=== PATIENT | male | born 1975 | race Hispanic/Latino ===

== ENCOUNTER 2019-09-22 18:20 | Emergency (ER) | payer MEDICARE, MEDICAID ==
[2019-09-22 18:55] LABS: Bilirubin Negative (Negative); Blood, Urine Negative (Negative); Clarity Clear (Clear); Glucose, Urine (Dipstick) Normal (Negative); Leukocyte Negative Leu/uL (Negative); Nitrite Negative (Negative); Protein, Urine (Dipstick) 10 mg/dL (Neg-Trace); Urobilinogen Normal mg/dL (Less than 2)
[2019-09-22 18:56] LABS: #Basophils 0.1 thou/uL (0.0-0.2); #Eosinphils 0.1 thou/uL (0.0-0.7); #Lymphocytes 2.6 thou/uL (1.20-3.40); #Neutrophils 7.4 thou/uL (1.40-6.50); %Basophils 0.7 % (0.0-1.0); %Eosinophils 0.8 % (0.0-10.0); %Lymphocytes 23.5 % (21.0-51.0); %Monocytes 8.6 % (0.0-10.0); %Neutrophils 66.4 % (42.0-75.0); Hemoglobin 14.6 g/dL (14.0-18.0); Mean Corpuscular HGB CONC 32.3 g/dL (32.0-36.0); Mean Corpuscular Hemoglobin 29.1 pg (27.0-31.0); Mean Corpuscular Volume 90.2 fL (78.0-98.0); Mean Platelet Volume 7.9 fL (7.4-10.4); Platelet Count 292 thou/uL (130-400); RBC Distribution Width 13.6 % (11.5-14.5); Red Blood Cell (RBC) Count 5.02 mill/uL (4.70-6.10); White Blood Cell (WBC) Count 11.2 thou/uL (4.8-10.8)
[2019-09-22 19:15] LABS: ALT (SGPT) 45 U/L (8-55); AST (SGOT) 37 U/L (5-34); Albumin 4.3 g/dL (3.5-5.0); Alkaline Phosphatase 137 U/L (40-110); Anion Gap 13 mmol/L (10-20); BUN (Urea Nitrogen) 11 mg/dL (8.9-20.6); Bilirubin, Total 0.3 mg/dL (0.2-1.2); Calc. Creatinine Clearance 0 mL/min (70-130); Calcium 8.8 mg/dL (7.8-10.44); Carbon Dioxide 21 mmol/L (22-29); Chloride 108 mmol/L (98-107); Estimated GFR-MDRD 63; Globulin 3.5 g/dL (2.4-3.5); Glucose 108 mg/dL (70-105); Protein, Total 7.8 g/dL (6.0-8.3); Sodium 138 mmol/L (136-145)
--- NOTE | 2019-09-22 20:48 | RAD ---
CHEST TWO VIEW: 09/22/19 HISTORY: Hemoptysis. COMPARISON: Radiograph 2018. FINDINGS: The lungs are clear. No pneumothorax or effusion. Cardiac silhouette and mediastinal contours are wit hin normal limits. There is no acute osseous abnormality. IMPRESSION: No acute intrathoracic abnormality. POS: HOME
== END 2019-09-22 21:59 | disposition home or self-care (01) ==
LOC: ERS 18:20
DX: R20.2 Paresthesia of skin (principal); G89.29 Other chronic pain; M54.9 Dorsalgia, unspecified; R05 Cough; Z86.73 Personal history of transient ischemic attack (TIA), and cerebral infarction without residual deficits; I10 Essential (primary) hypertension; I25.2 Old myocardial infarction; F32.9 Major depressive disorder, single episode, unspecified
CPT/HCPCS: 36415; 71046; 80053; 81003; 85025

== ENCOUNTER 2019-09-24 03:52 | Emergency (ER) | payer MEDICARE, MEDICAID ==
[2019-09-24 05:12] LABS: #Basophils 0.1 thou/uL (0.0-0.2); #Eosinphils 0.1 thou/uL (0.0-0.7); #Lymphocytes 2.5 thou/uL (1.20-3.40); #Monocytes 0.9 thou/uL (0.11-0.59); #Neutrophils 5.8 thou/uL (1.40-6.50); %Basophils 1.2 % (0.0-1.0); %Eosinophils 1.2 % (0.0-10.0); %Lymphocytes 26.9 % (21.0-51.0); %Monocytes 9.5 % (0.0-10.0); %Neutrophils 61.3 % (42.0-75.0); Hemoglobin 13.8 g/dL (14.0-18.0); Mean Corpuscular HGB CONC 32.8 g/dL (32.0-36.0); Mean Corpuscular Hemoglobin 29.7 pg (27.0-31.0); Mean Corpuscular Volume 90.3 fL (78.0-98.0); Mean Platelet Volume 7.7 fL (7.4-10.4); Platelet Count 260 thou/uL (130-400); RBC Distribution Width 13.6 % (11.5-14.5); Red Blood Cell (RBC) Count 4.67 mill/uL (4.70-6.10); White Blood Cell (WBC) Count 9.4 thou/uL (4.8-10.8)
[2019-09-24 05:32] LABS: ALT (SGPT) 35 U/L (8-55); AST (SGOT) 31 U/L (5-34); Albumin 3.9 g/dL (3.5-5.0); Alkaline Phosphatase 126 U/L (40-110); Anion Gap 11 mmol/L (10-20); BUN (Urea Nitrogen) 11 mg/dL (8.9-20.6); Bilirubin, Total 0.3 mg/dL (0.2-1.2); Calc. Creatinine Clearance 0 mL/min (70-130); Calcium 8.5 mg/dL (7.8-10.44); Carbon Dioxide 21 mmol/L (22-29); Chloride 109 mmol/L (98-107); Estimated GFR-MDRD 76; Globulin 3.1 g/dL (2.4-3.5); Glucose 118 mg/dL (70-105); Potassium 3.6 mmol/L (3.5-5.1); Sodium 137 mmol/L (136-145)
[2019-09-24] MEDS ORDERED: Lorazepam 1 MG TAB ONE (06:10)
--- NOTE | 2019-09-24 10:38 | RAD ---
CHEST 1 VIEW: HISTORY: Chest pain. COMPARISON: 09/22/2019. FINDINGS: Slightly less inspiration. No confluent pneumonia or overt edema. IMPRESSION: No significant acute process. Less inspiration, but otherwise stable from 09/22/2019. POS: [facility]
== END 2019-09-24 06:20 | disposition home or self-care (01) ==
LOC: ERS 03:52
DX: R07.9 Chest pain, unspecified (principal); I10 Essential (primary) hypertension; I25.2 Old myocardial infarction; F32.9 Major depressive disorder, single episode, unspecified; Z86.73 Personal history of transient ischemic attack (TIA), and cerebral infarction without residual deficits; Z79.899 Other long term (current) drug therapy
CPT/HCPCS: 36415; 71045; 80053; 84484; 85025; 93005

== ENCOUNTER 2020-02-14 00:40 | Observation (INO) | payer MEDICARE, MEDICAID, OTHER ==
[2020-02-14 01:13] LABS: #Basophils 0.1 thou/uL (0.0-0.2); #Eosinphils 0.1 thou/uL (0.0-0.7); #Lymphocytes 2.5 thou/uL (1.20-3.40); #Monocytes 0.7 thou/uL (0.11-0.59); #Neutrophils 4.5 thou/uL (1.40-6.50); %Basophils 1.1 % (0.0-1.0); %Eosinophils 1.5 % (0.0-10.0); %Lymphocytes 31.8 % (21.0-51.0); %Monocytes 8.3 % (0.0-10.0); %Neutrophils 57.2 % (42.0-75.0); Hemoglobin 12.8 g/dL (14.0-18.0); Mean Corpuscular HGB CONC 33.6 g/dL (32.0-36.0); Mean Corpuscular Hemoglobin 29.5 pg (27.0-31.0); Mean Platelet Volume 8.2 fL (7.4-10.4); Platelet Count 223 thou/uL (130-400); RBC Distribution Width 12.6 % (11.5-14.5); Red Blood Cell (RBC) Count 4.33 mill/uL (4.70-6.10); White Blood Cell (WBC) Count 7.8 thou/uL (4.8-10.8)
[2020-02-14 01:38] LABS: ALT (SGPT) 45 U/L (8-55); AST (SGOT) 39 U/L (5-34); Albumin 3.5 g/dL (3.5-5.0); Alkaline Phosphatase 120 U/L (40-110); Anion Gap 14 mmol/L (10-20); BUN (Urea Nitrogen) 10 mg/dL (8.9-20.6); Bilirubin, Total 0.3 mg/dL (0.2-1.2); CK (CPK) 286 U/L (30-200); Calc. Creatinine Clearance 0 mL/min (70-130); Calcium 8.5 mg/dL (7.8-10.44); Carbon Dioxide 22 mmol/L (22-29); Chloride 100 mmol/L (98-107); Estimated GFR-MDRD 52; Globulin 3.3 g/dL (2.4-3.5); Glucose 464 mg/dL (70-105); Lipase 42 U/L (8-78); Potassium 5.3 mmol/L (3.5-5.1); Protein, Total 6.8 g/dL (6.0-8.3); Sodium 131 mmol/L (136-145)
[2020-02-14 04:20] LABS: Amphetamine Not Detected (NotDetected); Barbiturates Screen Not Detected (NotDetected); Benzodiazepine Screen Not Detected (NotDetected); Cocaine Metabolite Screen Not Detected (NotDetected); Medtox Reader # READER 4; Methadone Not Detected (NotDetected); Methamphetamine Not Detected (NotDetected); Opiate Screen Not Detected (NotDetected); Oxycodone Screen Not Detected (NotDetected); Phencyclidine (PCP) Not Detected (NotDetected); THC/Cannabinoid Screen Not Detected (NotDetected); Tricyclic Screen Not Detected (NotDetected)
[2020-02-14 04:21] LABS: Medtox Control Line Valid? VALID (VALID)
[2020-02-14] MEDS ORDERED: Aspirin 325 MG TAB ONE (04:54)
[2020-02-14] MEDS ORDERED: Ondansetron PF 4 MG/2 ML Vial IVP PRN (07:23)
[2020-02-14] MEDS ORDERED: Ondansetron ODT 4 MG TAB PO PRN (07:23)
[2020-02-14] MEDS ORDERED: Lactated Ringer's 1,000 ML IV SCH (07:30)
[2020-02-14] MEDS ORDERED: Fentanyl 100 MCG/2 ML VIAL SLOW IVP PRN (07:32)
[2020-02-14 07:34] VITALS: BMI 49.4
--- NOTE | 2020-02-14 07:39 | RAD ---
Portable frontal chest radiograph: 02/14/2020 COMPARISON: 12/16/2019 HISTORY: Right-sided chest pain FINDINGS: Lungs are clear. Heart and mediastinal contours appear within normal limits. IMPRESSION: No acute findings.
--- NOTE | 2020-02-14 07:53 | CT ---
PRELIMINARY REPORT/[facility]/EMERGENCY AFTER HOURS PROCEDURE: EXAM: CTA Chest with Intravenous Contrast CLINICAL HISTORY: CP TECHNIQUE: Axial CTA images of the chest with intravenous contrast. Three-dimensional MIP/volume rend ered reformations were performed. CONTRAST: With; ISOVUE 370,100mL COMPARISON: None provided. FINDINGS: PULMONARY ARTERIES There is no intraluminal filling defect suspicious for PE. AORTA No thoracic aortic aneurysm or dissection. LUNGS There is diffuse peribronchial thickening. This is mildly worse in the right lung compared to the left. The lungs are clear. No pulmonary mass. No focal airspace consolidation. PLEURAL SPACES No pleural effusion. No pneumothorax. HEART AND MEDIASTINUM No cardiomegaly. No significant pericardial effusion. LYMPH NODES No lymphadenopathy. BONES No focal osseous abnormality or acute fracture. CHEST WALL AND UPPER ABDOMEN Liver is enlarged. There is hepatic steatosis. The chest wall is unre markable. IMPRESSION: No evidence for acute pulmonary embolism Findings consistent with bronchitis of indete rminate age. ELECTRONICALLY SIGNED BY: Kayley Yadav MD Feb 14, 2020 3:01:39 AM CDT FINAL REPORT CT ANGIOGRAM OF THE CHEST: HISTORY: Chest pain. COMPARISON: 12/16/2019. TECHNIQUE: CT angiogram of the chest is performed in the axial plane. Three-dimensional reformatted i mages are submitted for interpretation. FINDINGS: Mediastinum: No mass, lymphadenopathy or hematoma. Heart: Normal size. No significant pericardial fluid. Aorta: No aneurysm or dissection Upper solid abdominal viscera: No abnormality enhancement. Trachea and central bronchi: Patent. Minimal stable peribronchial thickening, nonspecific. Pleural spaces: No effusion. Lung parenchyma: No masses or consolidation. Pneumothorax: None. Osseous structures: No lytic or blastic lesions. Pulmonary arteries: Adequate contrast opacification pulmonary arterial system to the level of segment al arteries. No filling defect to suggest pulmonary embolism. IMPRESSION: 1. This report is in agreement with initial report by [facility]. 2. No evidence of pulmonary artery embolism to the level of the segmental arteries. 3. Nonspecific mild peribronchial thickening. Transcribed Date/Time: 02/14/2020 8:35 AM
[2020-02-14 08:27] LABS: Troponin I Less than 0.010 ng/mL (< 0.028)
[2020-02-14] MEDS ORDERED: FLU VACC QS2020-21(6MOS UP)/PF 60 MCG/0.5 ML SYRINGE IM ONE (08:30)
[2020-02-14] MEDS: Sodium Chloride 0.9% 1,000 ML IV SCH ×2 (08:58→18:44)
[2020-02-14] MEDS ORDERED: Aspirin 325 MG TAB PO SCH (09:00)
--- NOTE | 2020-02-14 09:24 | PDOC.HHP ---
Hospitalist HPI - History of Present Illness Chest pain History of Present Illness: Mr. Torre is a 44-year-old male with a past medical history of GA secondary to cocaine use, CHF, hypertension, seizures, hyperlipidemia, hypertension who presented to the emergency room for chest pain. Patient reports his chest pain has been ongoing over the past 2 weeks and lasts about 1 to 2 minutes of squeezing tightness in his chest. Patient notes that chest pain is associated with left arm numbness and mild shortness of breath. He denies nausea, vomiting, diarrhea. Patient denies dizziness or changes in vision during these events. Patient reports that these will occur approximately 1-2 times per day. Patient has a history of atypical chest pain with multiple admissions for chest pain rule out in the past. Of note he has had a heart catheterization done in 2019 which showed normal coronary arteries. In the ED vital signs 139/81, 65, 14, 98% on room air. EKG showed normal sinus rhythm with old right bundle branch block. Initial troponin 0 0.01. H/H 12.8/38.1. WBC 7.8, BUN/CR 10/1.47 sodium 131 potassium 5.3. BNP less than 10, lipase 42. D-dimer 0.52. Patient had CTA which was negative for any pulmonary embolism but did show mild peribronchial thickening stable from prior studies. In the emergency room patient received 3 and 25 mg of aspirin and 1 L of normal saline. Hospitalist ROS - Review of Systems Constitutional: denies: fever, chills, sweats, weakness, malaise, other Eyes: denies: pain, vision change, conjunctivae inflammation, eyelid inflammation, redness, other ENT: denies: ear pain, ear discharge, nose pain, nose discharge, nose congestion, mouth pain, mouth swelling, throat pain, throat swelling, other Respiratory: reports: shortness of breath. denies: cough, dry, hemoptysis, SOB with excertion, pleuritic pain, sputum, wheezing, other Cardiovascular: reports: chest pain. denies: palpitations, orthopnea, paroxysmal noc. dyspnea, edema, light headedness, other Gastrointestinal: denies: nausea, vomiting, abdominal pain, diarrhea, constipation, melena, hematochezia, other Genitourinary: denies: dysuria, frequency, incontinence, hematuria, retention, other Musculoskeletal: denies: neck pain, shoulder pain, arm pain, back pain, hand pain, leg pain, foot pain, other Skin: denies: rash, lesions, mingo, bruising, other Neurological: reports: seizures. denies: weakness, numbness, incoordination, change in speech, confusion, other - Medication Medications: Home medications include Keppra 500 mg twice daily Fluoxetine 20 mg daily Zofran Tizanidine 4 mg 3 times daily as needed Reglan 5 mg Hydroxyzine 50 mg twice daily Atorvastatin 80 mg daily Omeprazole 40 mg daily Gabapentin 300 mg twice daily Flonase Albuterol inhaler Topiramate 100 mg twice daily Hydralazine 25 mg twice daily Patient is allergic to phenytoin. Hospitalist History - Past Medical History Other Medical History: Medical history includes GA secondary to cocaine use Congestive heart failure Hypertension Seizures Obstructive sleep apnea COPD/obesity hypoventilation syndrome - Past Surgical History Other Surgical History: Past surgical history includes Sinus surgery Right ear surgery Tonsillectomy Cardiac cath in 2019 which showed normal coronary arteries - Family History Other Family History: Patient reports family history of heart disease. Also significant history of cancer with his mother dying of lung cancer in her 50s, and grandfather with lung cancer on that side and paternal grandfather with colon cancer. - Social History Smoking Status: Former smoker Tobacco Type: cigarettes Alcohol: reports: None Drugs: reports: cocaine, marijuana Living Situation: With Family Activity level: independent ambulation Other Social History: Patient with memory deficits secondary to cocaine induced GA GA and in cardiac arrest. Has account manager relief named Jennifer who is patient's medical decision-maker. - Exam General Appearance: NAD, awake alert Eye: PERRL, anicteric sclera ENT: normocephalic atraumatic, no oropharyngeal lesions, moist mucosa Neck: supple, symmetric, no JVD, no thyromegaly, no lymphadenopathy, no carotid bruit Heart: RRR, no murmur, no gallops, no rubs, normal peripheral pulses Respiratory: CTAB, no wheezes, no rales, no ronchi, normal chest expansion, no tachypnea, normal percussion Gastrointestinal: soft, non-tender, non-distended, normal bowel sounds, no palpable masses, no hepatomegaly, no splenomegaly, no bruit Extremities: no cyanosis, no clubbing, no edema Skin: normal turgor, no lesions, no rashes Neurological: cranial nerve grossly intact, normal sensation to touch, no weakness, no focal deficits, no new deficit Musculoskeletal: normal tone, normal strength, no muscle wasting Psychiatric: normal affect, normal behavior, A&O x 3 Hospitalist Results - Labs Result Diagrams: 02/14/20 01:05 02/15/20 07:42 Lab results: WBC 7.8 thou/uL (4.8-10.8) 02/14/20 01:05 Hgb 12.8 g/dL (14.0-18.0) L 02/14/20 01:05 Hct 38.1 % (42.0-52.0) L 02/14/20 01:05 MCV 88.0 fL (78.0-98.0) 02/14/20 01:05 Plt Count 223 thou/uL (130-400) 02/14/20 01:05 Neutrophils % 57.2 % (42.0-75.0) 02/14/20 01:05 Sodium 131 mmol/L (136-145) L 02/14/20 01:05 Potassium 5.3 mmol/L (3.5-5.1) H 02/14/20 01:05 Chloride 100 mmol/L (98-107) 02/14/20 01:05 Carbon Dioxide 22 mmol/L (22-29) 02/14/20 01:05 BUN 10 mg/dL (8.9-20.6) 02/14/20 01:05 Creatinine 1.47 mg/dL (0.7-1.3) H 02/14/20 01:05 Glucose 464 mg/dL (70-105) H 02/14/20 01:05 Calcium 8.5 mg/dL (7.8-10.44) 02/14/20 01:05 Total Bilirubin 0.3 mg/dL (0.2-1.2) 02/14/20 01:05 AST 39 U/L (5-34) H 02/14/20 01:05 ALT 45 U/L (8-55) 02/14/20 01:05 Alkaline Phosphatase 120 U/L (40-110) H 02/14/20 01:05 Creatine Kinase 286 U/L (30-200) H 02/14/20 01:05 Troponin I Less than 0.010 ng/mL (< 0.028) 02/14/20 07:49 B-Natriuretic Peptide Less than 10.0 pg/mL (0-100) 02/14/20 01:05 Serum Total Protein 6.8 g/dL (6.0-8.3) 02/14/20 01:05 Albumin 3.5 g/dL (3.5-5.0) 02/14/20 01:05 Lipase 42 U/L (8-78) 02/14/20 01:05 Hospitalist H&P A/P - Plan Plan: Chest pain 43-year-old male with past medical history of cocaine induced GA with cardiac arrest, CHF, hypertension, seizures who presents for chest pain. EKG showed no rmal sinus rhythm with old right bundle branch block. Initial troponin 0 0.01. D-dimer 0.52 CTA negative for pulmonary embolism or aortic pathology. Patient has had multiple prior admissions for chest pain/ACS rule out. Patient had an abnormal stress test last year in 2019 and underwent cardiac catheterization which showed normal coronary arteries. Patient received 3 and 25 mg of aspirin in the ED. Will keep for observation and monitor troponins as well as keep on telemetry overnight. Plan: Trend troponins Glass Handler electrolytes, magnesium, calcium, TSH Aspirin, continue home atorvastatin Acute kidney injury On admission BUN/CR 01/30.47. On chart review prior creatinine level less than 1. Patient did receive contrast dye with CTA. Patient was hydrated after receiving dye and we will continue IV fluids. Trend kidney function IV fluids Avoid nephrotoxic agents were possible Seizures Patient with history of seizure disorder on topiramate and Keppra. Patient follows with neurologist Dr. Craft. Patient reports compliance with his seizure medications, but reports his last seizure was approximately 2 weeks ago. Plan: Continue Keppra, topiramate Continue tizanidine Continue to monitor Hyperkalemia Patient mildly hyperkalemic to 5.3 on admission. EKG with no ST changes. Patie nt receiving IV fluids secondary to MURALI. We will continue to monitor and treat as necessary Hypertension Continue home antihypertensives, hydralazine Hyperlipidemia Continue home atorvastatin 80 mg Anxiety/depression Continue home fluoxetine, hydroxyzine. GERD Continue home omeprazole DVT prophylaxis: Lovenox Full code Case discussed with attending physician, Dr. Perez.
[2020-02-14] MEDS ORDERED: Non-Formulary Item 1 EACH (Tizanidine Hcl [Tizanidine Hcl] 4 MG Capsule) PO PRN (09:45)
[2020-02-14] MEDS ORDERED: tiZANidine HCl 4 MG TAB PO PRN (10:39)
[2020-02-14 11:21] LABS: Calcium 8.6 mg/dL (7.8-10.44); Magnesium 1.7 mg/dL (1.6-2.6)
[2020-02-14] MEDS: Acetaminophen 325 MG TAB PO PRN ×2 (11:54→16:13)
[2020-02-14 12:55] LABS: SARS-CoV-2 MS2 Positive; SARS-CoV-2 N Gene Negative; SARS-CoV-2 S Gene Negative; SARS-CoV-2 by NAA Not Detected (NotDetected); SARS-CoV-2 orf1ab Negative
[2020-02-14] MEDS ORDERED: Iopamidol-370 76% 500 ML 1 ML ONE (14:36)
[2020-02-14] MEDS: hydrALAZINE 25 MG TAB PO SCH ×2 (15:25→22:00)
[2020-02-14] MEDS ORDERED: Acetaminophen 325 MG TAB PO PRN (17:33)
[2020-02-14] MEDS: Gabapentin 300 MG CAP PO SCH (22:00)
[2020-02-14] MEDS: levETIRAcetam 500 MG TAB PO SCH (22:00)
[2020-02-14] MEDS: hydrOXYzine Pamoate 25 mg Capsule PO SCH (22:00)
[2020-02-14] MEDS: Topiramate 100 MG TAB PO SCH (22:01)
[2020-02-15] MEDS: Sodium Chloride 0.9% 1,000 ML IV SCH (04:46)
[2020-02-15 08:48] LABS: Anion Gap 12 mmol/L (10-20); BUN (Urea Nitrogen) 8 mg/dL (8.9-20.6); Calc. Creatinine Clearance 197 mL/min (70-130); Calcium 8.8 mg/dL (7.8-10.44); Carbon Dioxide 26 mmol/L (22-29); Chloride 103 mmol/L (98-107); Estimated GFR-MDRD 81; Glucose 130 mg/dL (70-105); Potassium 4.5 mmol/L (3.5-5.1); Sodium 136 mmol/L (136-145)
[2020-02-15] MEDS ORDERED: Non-Formulary Item 1 EACH (Fluticasone Propionate [Flonase Allergy Relief] 9.9 ML Bottle) EA NARE SCH (09:00)
[2020-02-15] MEDS ORDERED: FLUoxetine HCl 20 MG CAP PO SCH (09:00)
[2020-02-15] MEDS ORDERED: Non-Formulary Item 1 EACH (Atorvastatin Calcium [Lipitor] 80 MG Tablet) PO SCH (09:00)
[2020-02-15] MEDS ORDERED: Non-Formulary Item 1 EACH (Omeprazole [Omeprazole] 40 MG Capsule.Dr) PO SCH (09:00)
[2020-02-15] MEDS ORDERED: Fluticasone Propionate Nasal Spray 16 gm Bottle NASAL SCH (09:00)
[2020-02-15] MEDS ORDERED: Aspirin 325 mg Enteric Coated Tablet PO SCH (09:00)
[2020-02-15] MEDS ORDERED: Atorvastatin Calcium 40 MG TAB PO SCH (09:00)
[2020-02-15] MEDS: Gabapentin 300 MG CAP PO SCH (09:43)
[2020-02-15] MEDS: hydrALAZINE 25 MG TAB PO SCH (09:44)
[2020-02-15] MEDS: levETIRAcetam 500 MG TAB PO SCH (09:44)
[2020-02-15] MEDS: Topiramate 100 MG TAB PO SCH (09:45)
[2020-02-15] MEDS: hydrOXYzine Pamoate 25 mg Capsule PO SCH (09:48)
[2020-02-15 11:55] VITALS: BP 139/87; TEMP 97.9
[2020-02-15 13:08] LABS: Hemoglobin A1c 7.8 % (4.0-6.0)
--- NOTE | 2020-02-16 11:15 | EKG ---
Test Reason : Blood Pressure : / mmHG Vent. Rate : 063 BPM Atrial Rate : 063 BPM P-R Int : 138 ms QRS Dur : 096 ms QT Int : 426 ms P-R-T Axes : 014 014 020 degrees QTc Int : 435 ms Normal sinus rhythm Incomplete right bundle branch block Borderline ECG Confirmed by KIANNA PIMENTEL ([id number]), design editor ANIKET MOORE ([id number]) on 02/16/2020 11:15:05 AM Referred By: Confirmed By:KIANNA PIMENTEL
--- NOTE | 2020-02-19 15:47 | DIS ---
DATE OF ADMISSION: 02/14/2020 DATE OF DISCHARGE: 02/15/2020 DISCHARGE DIAGNOSES: 1. Atypical chest pain. 2. Acute kidney injury, resolved. 3. History of seizure. 4. Hyperkalemia, resolved. 5. Uncontrolled hypertension. 6. Anxiety depression disorder/depression disorder. 7. Gastroesophageal reflux disease. PROCEDURES: None. CONSULTATIONS: None. LABORATORY DATA AND IMAGING STUDY: WBC 7.8, hemoglobin 12.8, hematocrit 38.1, platelet 232. D-dimer 0.52. Sodium is 136, potassium 4.5, chloride is 103, anion gap 12, BUN 8, creatinine is 1.01, glucose 130. AST 39, ALT 45, TSH 2.88. Urine drug screen was not detected. COVID PCR was negative. Troponins negative x3. CTA, no evidence of PE, finding consistent of bronchitis of indeterminate age. Chest x-ray, no acute finding. HISTORY OF PRESENT ILLNESS AND BRIEF HOSPITAL COURSE: The patient is a pleasant 44-year-old gentleman, who has significant past medical history of congestive heart failure, hypertension, seizure disorder, dyslipidemia, morbid obesity with BMI of 49.4, who presented to the ED with complaint of chest discomfort. His symptoms started intermittently for the past couple of weeks. The patient apparently had a heart catheterization done in 2018, which showed normal coronary artery disease as well as stress test. Given his risk factor and treatment symptomatology, he was subsequently admitted to hospitalist service for further management. He was monitored on tele. No evidence of arrhythmia. His serial cardiac enzymes negative x3. Apparently, he ran out of his hydralazine for the past few days, and his blood pressure has been elevated. He also suspected to have a severe obstructive sleep apnea, he was on CPAP in the past, but has not been using it for last few years, his PCP has referred him for a sleep study, which supposed to be done in May of 2020, which I suspect probably the underlying cause of the majority of his problem. The patient was counseled extensively with regard to weight reduction, healthy diet and regular exercise. At this time, his blood pressures appear to be well controlled. His symptoms resolved. We recommend to follow up with PCP, and encouraged to keep the sleep study appointment. At this time, the patient is stable to discharge home. His symptoms resolved. Kidney functions normalized, tolerating diet. DISPOSITION: The patient is stable to discharge home. ACTIVITY: As tolerated. DIET: Heart healthy diet. FOLLOWUP CARE: The patient to follow up with his PCP in 1 to 2 weeks, recommended outpatient sleep study. PHYSICAL EXAMINATION: VITAL SIGNS: Temperature is 97.6, respiratory rate 14, pulse 71, saturating 96% on room air, blood pressure 142/76. GENERAL APPEARANCE: The patient is not in acute distress, obese. HEENT: Normocephalic, atraumatic. Mucous membranes moist. NECK: Supple. No lymphadenopathy. No JVD. CARDIOVASCULAR: Regular rate and rhythm. S1 and S2 noted. No murmur. PULMONOLOGY: Clear to auscultation bilaterally. ABDOMEN: Soft, obese. EXTREMITIES: No edema. NEUROLOGIC: Cranial nerves 2 through 12 grossly intact. No focal weakness. PSYCHIATRIC: The patient is alert and oriented x3 with normal affect. DISCHARGE MEDICATIONS: He will continue his home routine medication include, 1. Zofran 4 mg q.6 p.r.n. 2. Albuterol neb 2.5 neb q.6 p.r.n. for wheezing. 3. Hydralazine 25 mg t.i.d. 4. Flonase 9.9 mL bottle 1 spray daily. 5. Fluoxetine (Prozac) 20 mg p.o. q.a.m. 6. Gabapentin 300 mg b.i.d. 7. Hydroxyzine 50 mg b.i.d. 8. Keppra 500 mg b.i.d. 9. Lipitor 80 mg p.o. daily. 10. Omeprazole 40 mg p.o. daily. 11. Reglan 5 mg q.i.d. p.r.n. for nausea. 12. Tizanidine 4 mg p.o. t.i.d. p.r.n. for spasm. Thank you for allowing us to participate in this patient's care. Discharge time spent, 30 minutes. Job ID: [id number]
== END 2020-02-15 13:52 | disposition home or self-care (01) ==
LOC: ERS 00:40 → 2SE 04:11
PROVIDERS: ADMIT Internal Medicine; ATTEND Internal Medicine
DX: R07.9 Chest pain, unspecified (principal); I11.0 Hypertensive heart disease with heart failure; I50.9 Heart failure, unspecified; N17.9 Acute kidney failure, unspecified; G40.909 Epilepsy, unspecified, not intractable, without status epilepticus; E78.5 Hyperlipidemia, unspecified; G47.33 Obstructive sleep apnea (adult) (pediatric); J44.9 Chronic obstructive pulmonary disease, unspecified; I25.2 Old myocardial infarction; E87.5 Hyperkalemia; F41.9 Anxiety disorder, unspecified; F32.9 Major depressive disorder, single episode, unspecified; K21.9 Gastro-esophageal reflux disease without esophagitis; Z79.84 Long term (current) use of oral hypoglycemic drugs; Z79.899 Other long term (current) drug therapy; Z87.891 Personal history of nicotine dependence; Z88.8 Allergy status to other drugs, medicaments and biological substances; Z91.038 Other insect allergy status; Z20.828 Contact with and (suspected) exposure to other viral communicable diseases
CPT/HCPCS: 71045; 71275; 80048; 80306; 82310; 82550; 82962; 83036; 83690; 83735; 83880; 84484 ×2; 85379; 87040; 87086; 90662; 93005; 94760; 99285; G0008; U0003; 36415; 36416; 80053; 84443; 85025; 87635; 90471; 96360; 96361; G0378; Q0177; Q9967

== ENCOUNTER 2020-03-14 14:57 | Emergency (ER) | payer MEDICARE, MEDICAID ==
[2020-03-14] MEDS ORDERED: Acetaminophen 500 MG TAB ONE (16:35)
[2020-03-14] MEDS ORDERED: Ketorolac Tromethamine 30 MG/ML VIAL ONE (17:42)
[2020-03-14] MEDS ORDERED: Metoclopramide HCl 10 MG/2 ML VIAL ONE (17:42)
[2020-03-14] MEDS ORDERED: diphenhydrAMINE 50 MG/ML VIAL ONE (17:42)
--- NOTE | 2020-03-14 17:47 | RAD ---
CHEST ONE VIEW: 03/14/20 HISTORY: Cough. Hemoptysis. COMPARISON: 02/14/20. FINDINGS: Normal cardiac silhouette. Pulmonary vessels and hilum are normal. Costophrenic angles are clear. No consolidation or mass. No pneumothorax or acute osseous abnormalities. IMPRESSION: No acute cardiopulmonary process. POS: [facility]
[2020-03-14 17:52] LABS: #Eosinphils 0.1 thou/uL (0.0-0.7); #Lymphocytes 2.2 thou/uL (1.20-3.40); #Monocytes 0.6 thou/uL (0.11-0.59); #Neutrophils 4.8 thou/uL (1.40-6.50); %Basophils 0.4 % (0.0-1.0); %Eosinophils 1.6 % (0.0-10.0); %Lymphocytes 28.1 % (21.0-51.0); %Monocytes 7.4 % (0.0-10.0); %Neutrophils 62.5 % (42.0-75.0); Hemoglobin 12.8 g/dL (14.0-18.0); Mean Corpuscular HGB CONC 33.6 g/dL (32.0-36.0); Mean Corpuscular Hemoglobin 28.8 pg (27.0-31.0); Mean Corpuscular Volume 85.8 fL (78.0-98.0); Mean Platelet Volume 8.3 fL (7.4-10.4); Platelet Count 224 thou/uL (130-400); RBC Distribution Width 12.7 % (11.5-14.5); Red Blood Cell (RBC) Count 4.45 mill/uL (4.70-6.10); White Blood Cell (WBC) Count 7.7 thou/uL (4.8-10.8)
[2020-03-14 18:15] LABS: ALT (SGPT) 44 U/L (8-55); AST (SGOT) 48 U/L (5-34); Albumin 3.7 g/dL (3.5-5.0); Alkaline Phosphatase 125 U/L (40-110); Anion Gap 15 mmol/L (10-20); BUN (Urea Nitrogen) 11 mg/dL (8.9-20.6); Bilirubin, Total 0.2 mg/dL (0.2-1.2); Calc. Creatinine Clearance 0 mL/min (70-130); Calcium 8.6 mg/dL (7.8-10.44); Carbon Dioxide 23 mmol/L (22-29); Chloride 102 mmol/L (98-107); Estimated GFR-MDRD 64; Globulin 3.6 g/dL (2.4-3.5); Glucose 244 mg/dL (70-105); Potassium 4.7 mmol/L (3.5-5.1); Protein, Total 7.3 g/dL (6.0-8.3); Sodium 135 mmol/L (136-145)
[2020-03-15 20:45] LABS: SARS-CoV-2 MS2 Positive; SARS-CoV-2 N Gene Negative; SARS-CoV-2 S Gene Negative; SARS-CoV-2 by NAA Not Detected (NotDetected); SARS-CoV-2 orf1ab Negative
== END 2020-03-14 18:34 | disposition home or self-care (01) ==
LOC: ERS 14:57
DX: E11.65 Type 2 diabetes mellitus with hyperglycemia (principal); J39.9 Disease of upper respiratory tract, unspecified; R51.9 Headache, unspecified; Z20.828 Contact with and (suspected) exposure to other viral communicable diseases; I11.0 Hypertensive heart disease with heart failure; I50.9 Heart failure, unspecified; I25.2 Old myocardial infarction; F32.9 Major depressive disorder, single episode, unspecified; N19 Unspecified kidney failure; Z79.84 Long term (current) use of oral hypoglycemic drugs; Z79.899 Other long term (current) drug therapy
CPT/HCPCS: 71045; 80053; 85025; U0003; 36415; 36416; 87635; 96365; 96375; J1200; J1885; J2765

== ENCOUNTER 2020-06-06 19:00 | Outpatient (CLI) | payer MEDICARE, MEDICAID | END 2020-06-06 19:01 | disposition home or self-care (01) | LOC: SLEEPLAB 19:00 | PROVIDERS: ATTEND Internal Medicine Pulmonary Disease | DX: G47.33 Obstructive sleep apnea (adult) (pediatric) (principal); G47.10 Hypersomnia, unspecified; G31.84 Mild cognitive impairment of uncertain or unknown etiology; G47.00 Insomnia, unspecified; E66.9 Obesity, unspecified; F32.9 Major depressive disorder, single episode, unspecified; R06.83 Snoring; R53.83 Other fatigue; R40.0 Somnolence | CPT/HCPCS: 95811 ==

== ENCOUNTER 2020-06-09 17:56 | Inpatient (IN) | payer MEDICARE, MEDICAID ==
[~2020-06-09 17:56] MED LIST: Iopamidol-370 76% 500 ML 1 ML ONE
[2020-06-09] MEDS ORDERED: Acetaminophen 500 MG TAB ONE (19:58)
[2020-06-09] MEDS ORDERED: Albuterol 200 PUFF (6.7GM INHALER) ONE (20:00)
[2020-06-09 20:06] LABS: #Basophils 0.1 thou/uL (0.0-0.2); #Eosinphils 0.2 thou/uL (0.0-0.7); #Lymphocytes 2.4 thou/uL (1.20-3.40); #Neutrophils 7.2 thou/uL (1.40-6.50); %Basophils 0.6 % (0.0-1.0); %Eosinophils 1.7 % (0.0-10.0); %Lymphocytes 22.1 % (21.0-51.0); %Monocytes 8.8 % (0.0-10.0); %Neutrophils 66.7 % (42.0-75.0); Mean Corpuscular HGB CONC 33.3 g/dL (32.0-36.0); Mean Corpuscular Hemoglobin 27.9 pg (27.0-31.0); Mean Corpuscular Volume 83.8 fL (78.0-98.0); Mean Platelet Volume 7.9 fL (7.4-10.4); Platelet Count 248 thou/uL (130-400); RBC Distribution Width 13.1 % (11.5-14.5); White Blood Cell (WBC) Count 10.8 thou/uL (4.8-10.8)
--- NOTE | 2020-06-09 20:43 | RAD ---
Portable frontal chest radiograph: 06/09/2020 COMPARISON: 03/14/2020 HISTORY: Asthma, dyspnea FINDINGS: There is new increased density in the right hilar region. There is no pneumothorax or pleur al fluid. There is no focal consolidation or alveolar edema. IMPRESSION: New focal opacity in the right hilar region. This could represent a focal area of inflamm atory/infectious pneumonitis. Underlying mass cannot be excluded and thus, short-term follow-up imaging following treatment is advised to document resolution. CODE T
[2020-06-09 21:16] LABS: ALT (SGPT) 34 U/L (8-55); AST (SGOT) 38 U/L (5-34); Albumin 3.9 g/dL (3.5-5.0); Alkaline Phosphatase 173 U/L (40-110); Anion Gap 21 mmol/L (10-20); BUN (Urea Nitrogen) 10 mg/dL (8.9-20.6); Bilirubin, Total 0.5 mg/dL (0.2-1.2); CK (CPK) 208 U/L (30-200); Calc. Creatinine Clearance 0 mL/min (70-130); Calcium 8.7 mg/dL (7.8-10.44); Carbon Dioxide 14 mmol/L (22-29); Chloride 103 mmol/L (98-107); Glucose 305 mg/dL (70-105); Potassium 5.4 mmol/L (3.5-5.1); Protein, Total 7.9 g/dL (6.0-8.3); Sodium 133 mmol/L (136-145)
[2020-06-09] MEDS ORDERED: cefTRIAXone\\ROCEPHIN 2 GM VIAL ONE (21:58)
[2020-06-09] MEDS ORDERED: Azithromycin 250 MG TAB ONE (21:58)
[2020-06-09] MEDS ORDERED: Ketorolac Tromethamine 30 MG/ML VIAL ONE (21:58)
--- NOTE | 2020-06-09 23:18 | CT ---
CT angiogram chest: 06/09/2020 COMPARISON: 02/14/2020 HISTORY: Shortness of breath with chest pain TECHNIQUE: Axial CT imaging at 2.5 mm intervals from the thoracic inlet through the upper abdomen wit h IV contrast using a CT angiogram protocol. Coronal and sagittal 3-D reformatted imaging obtained. FINDINGS: There is no axillary lymphadenopathy noted. There is a new right paratracheal enlarged lymph node measuring 2.2 cm in short axis dimension. New s ubcarinal adenopathy measures 2.6 cm in short axis dimension, multiple new mildly enlarged left hilar lymph nodes are noted, and there is prominent new right hilar lymphadenopathy measuring up to 2 .7 cm in short axis dimension. No pneumothorax is evident on either side. There is a subtle focal area of hazy groundglass opacity within the left lower lobe on axial image 76 . There is a new left upper lobe pulmonary nodule on axial image 55 measuring 9 mm. There is a nonspecific tiny pleural-based nodule within the left lower lobe on axial image 83. There is a pleural-based nodular density within the superior segment of the right lower lobe posterio rly measuring 1.7 cm in transverse dimension. There are a few scattered new right upper lobe pulmonary nodules measuring up to 5 mm. There is a new superior right middle lobe pulmonary nodule on axial image 61 measuring 5 mm. Soft tissue density in the right hilum, new when compared to the prior examination, causes prominent narrowing of the bro nchi supplying the right middle and right lower lobe with a soft tissue density within the right hilum measuring at least 5.3 cm in AP dimension with linear interstitial density and associated groun dglass opacity extending into the adjacent right upper lobe and superior segment right lower lobe. There is narrowing of the pulmonary arterial vasculature supplying the right middle and right lower l obe as well. Limited assessment of the imaged upper abdomen demonstrates hepatic hypodensities suggesting steatosi s. The osseous structures demonstrate no acute findings. No worrisome lytic or blastic bone lesions are seen. IMPRESSION: Interval development of a large mass density in the right hilar region narrowing the bron chi and pulmonary arterial vasculature supplying the right middle and right lower lobe. There is associated mediastinal and bilateral hilar lymphadenopathy, as well as scattered pulmonary nodules. T his process is new when compared to a CT performed approximately 4 months ago. Its configuration is most concerning for malignancy. If this represents an inflammatory or infectious process, primary tub erculosis would be the leading consideration. Malignancy is favored. Sosa Oreilly was made aware via phone by Dr. Rivas at 11:14 PM 06/09/2020
[2020-06-09] MEDS ORDERED: HumaLOG 300 UNITS/3 ML VIAL ONE (23:53)
[2020-06-09] MEDS ORDERED: Insulin Regular 300 UNITS/3 ML VIAL ONE (23:54)
--- NOTE | 2020-06-10 00:39 | PDOC.HHP ---
Hospitalist HPI Shortness of breath History of Present Illness: 45-year-old male with past medical history of polysubstance abuse in the past, history of cocaine abuse with subsequent cocaine induced [place] requiring intubation and vent, memory deficit postevent, hypertension , obesity, seizure disorder as follows with Dr. Christiano Powell neurology ; admitted now because of progressive shortness of breath as well as throat pain and dysphagia with solid food. He admits to daily cough with brownish sputum. He describes 1 episode of hemoptysis 1 week ago. Patient denies associated chest pain. He states shortness of breath has been slowly progressive. He describes intermittent throat pain with every attempt to eat. He admits to previous weight gain basically he has been trying to lose weight since the last 2 weeks due to the odynophagia. On arrival in the ED his O2 sats was reportedly normal on room air. He was initially ruled out for acute coronary syndrome with normal cardiac enzymes and EKG. A CT scan of the chest shows significant new right hilar density mass worrisome for malignancy versus tuberculosis. Patient describes previous tobacco use but quit after [place] event. Of note cardiac cath 2 years ago showed normal coronaries. Patient describes history of mother dying from complication of lung cancer. His grandparents also have cancer. He is unsure of type. He states his father is currently battling colon cancer. He has never had any cancer diagnosis in the past. He denies any recent travel. He denies any recent cough contact. He denies any fever, night sweats or chills Allergies/Adverse Reactions: Allergy/AdvReac Type Severity Reaction Status Date / Time phenytoin [From Dilantin] Allergy Verified 12/16/19 23:16 red wasps Allergy Uncoded 12/16/19 23:16 Home Medications: Medication Instructions Recorded Confirmed Type FLUoxetine HCl [Fluoxetine HCl] 20 mg PO QAM 12/16/19 02/14/20 History Gabapentin 300 mg PO BID 12/16/19 02/14/20 History hydrOXYzine Pamoate 50 mg PO BID 12/16/19 02/14/20 History levETIRAcetam [Levetiracetam] 500 mg PO BID 12/16/19 02/14/20 History Atorvastatin Calcium [Lipitor] 80 mg PO DAILY 12/17/19 02/14/20 History hydrALAZINE [Apresoline] 25 mg PO TID 12/17/19 02/14/20 History tiZANidine HCl [Tizanidine HCl] 4 mg PO TID PRN 12/17/19 02/14/20 History Albuterol Sulfate [Albuterol 2.5 mg NEB Q6H PRN 02/14/20 02/14/20 History Sulfate Neb] Fluticasone Propionate [Flonase 1 spray EA NARE DAILY 02/14/20 02/14/20 History Allergy Relief] Metoclopramide HCl [Reglan] 5 mg PO QID PRN 02/14/20 02/14/20 History Omeprazole 40 mg PO DAILY 02/14/20 02/14/20 History Ondansetron [Zofran ODT] 4 mg PO Q6HR PRN 02/14/20 02/14/20 History metFORMIN [Glucophage] 500 mg PO BID-WM #60 tab 02/15/20 Rx Past History: PMHx: History of cocaine use [place] Hypertension Obesity Query diabetes mellitus Seizure disorder PSHx: None FHx: Mother with history of lung cancer Social: Extobacco user, no history of alcohol use, former cocaine abuse history Reside with a [facility] due to memory deficits 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 dyspnea, edema, light headedness, other Gastrointestinal: reports: other Musculoskeletal: reports: back pain Skin: denies: rash, lesions, mingo, bruising, other Hospitalist Exam General Appearance: awake alert General - other findings: obese middle aged male , on RA Eye: PERRL, anicteric sclera ENT: normocephalic atraumatic, no oropharyngeal lesions Neck: supple, symmetric, no JVD, no carotid bruit Heart: RRR, no murmur Respiratory: no wheezes, normal chest expansion, rales Gastrointestinal: soft, non-tender, non-distended, normal bowel sounds, no palpable masses, no guarding Extremities: no cyanosis, no clubbing Skin: normal turgor, no lesions Neurological: cranial nerve grossly intact, normal sensation to touch Musculoskeletal: normal tone, normal strength Psychiatric: normal affect, normal behavior, A&O x 3 Hospitalist Results Result Diagrams: 06/09/20 19:51 06/09/20 19:51 Lab results: Laboratory Last Values WBC 10.8 thou/uL (4.8-10.8) 06/09/20 19:51 RBC 5.00 mill/uL (4.70-6.10) 06/09/20 19:51 Hgb 14.0 g/dL (14.0-18.0) 06/09/20 19:51 Hct 41.9 % (42.0-52.0) L 06/09/20 19:51 MCV 83.8 fL (78.0-98.0) 06/09/20 19:51 MCH 27.9 pg (27.0-31.0) 06/09/20 19:51 MCHC 33.3 g/dL (32.0-36.0) 06/09/20 19:51 RDW 13.1 % (11.5-14.5) 06/09/20 19:51 Plt Count 248 thou/uL (130-400) 06/09/20 19:51 MPV 7.9 fL (7.4-10.4) 06/09/20 19:51 Neutrophils % 66.7 % (42.0-75.0) 06/09/20 19:51 Lymphocytes % 22.1 % (21.0-51.0) 06/09/20 19:51 Monocytes % 8.8 % (0.0-10.0) 06/09/20 19:51 Eosinophils % 1.7 % (0.0-10.0) 06/09/20 19:51 Basophils % 0.6 % (0.0-1.0) 06/09/20 19:51 Neutrophils # 7.2 thou/uL (1.40-6.50) H 06/09/20 19:51 Lymphocytes # 2.4 thou/uL (1.20-3.40) 06/09/20 19:51 Monocytes # 1.0 thou/uL (0.11-0.59) H 06/09/20 19:51 Eosinophils # 0.2 thou/uL (0.0-0.7) 06/09/20 19:51 Basophils # 0.1 thou/uL (0.0-0.2) 06/09/20 19:51 D-Dimer 1.42 *mcg/mL (0.27-0.43) H 06/09/20 19:51 Sodium 133 mmol/L (136-145) L 06/09/20 19:51 Potassium 5.4 mmol/L (3.5-5.1) H 06/09/20 19:51 Chloride 103 mmol/L (98-107) 06/09/20 19:51 Carbon Dioxide 14 mmol/L (22-29) L 06/09/20 19:51 Anion Gap 21 mmol/L (10-20) H 06/09/20 19:51 BUN 10 mg/dL (8.9-20.6) 06/09/20 19:51 Creatinine 1.29 mg/dL (0.7-1.3) 06/09/20 19:51 Estimated GFR (MDRD) 61 06/09/20 19:51 Glucose 305 mg/dL (70-105) H 06/09/20 19:51 POC Glucose 329 mg/dL (70-100) H 06/09/20 23:39 Calcium 8.7 mg/dL (7.8-10.44) 06/09/20 19:51 Total Bilirubin 0.5 mg/dL (0.2-1.2) 06/09/20 19:51 AST 38 U/L (5-34) H 06/09/20 19:51 ALT 34 U/L (8-55) 06/09/20 19:51 Alkaline Phosphatase 173 U/L (40-110) H 06/09/20 19:51 Creatine Kinase 208 U/L (30-200) H 06/09/20 19:51 Troponin I 0.021 ng/mL (< 0.028) 06/09/20 19:51 B-Natriuretic Peptide 18.2 pg/mL (0-100) 06/09/20 19:51 Serum Total Protein 7.9 g/dL (6.0-8.3) 06/09/20 19:51 Albumin 3.9 g/dL (3.5-5.0) 06/09/20 19:51 Globulin 4.0 g/dL (2.4-3.5) H 06/09/20 19:51 Albumin/Globulin Ratio 1.0 g/dL (1.2-2.2) L 06/09/20 19:51 CT scan - chest Additional Comments: Chest x-ray shows right hilar infiltrate CT chest shows significant extensive lymphadenopathy in the subcarina paratracheal and hilar area, left upper lobe nodule, right large density obstructing the right bronchi and pulmonary vessel Hospitalist H&P A/P (1) Neoplasm of hilus of right lung Code(s): D49.1 - NEOPLASM OF UNSPECIFIED BEHAVIOR OF RESPIRATORY SYSTEM Status: Acute (2) Obesity Code(s): E66.9 - OBESITY, UNSPECIFIED Status: Acute (3) Hypertension Code(s): I10 - ESSENTIAL (PRIMARY) HYPERTENSION Status: Acute (4) Seizure disorder Code(s): G40.909 - EPILEPSY, UNSP, NOT INTRACTABLE, WITHOUT STATUS EPILEPTICUS Status: Acute Plan: #Right hilar massgiven history of lung cancer in the family as well as tobacco use, and interval onset of large mass compared to previous CT 4 months ago, high suspicion for malignancy We will consult interventional radiology for biopsy of lesion in a.m. We will consult pulmonary Start empirical antibiotics Keep in droplet isolation for rule out TB although less likely -We will obtain TB Gold, as well as ESR Do guaifenesin as needed for cough symptoms Likely mass causing sore throat symptoms, will follow #Hypertensionresume home meds, avoid hypotension History of seizure disorderwe will resume home regimen DVT prophylaxissubcutaneous heparin Advance directivepatient wishes to be full code, caregiver in the room Jennifer discussed with
[2020-06-10] MEDS ORDERED: Zolpidem Tartrate 5 MG TAB PO PRN (00:48)
[2020-06-10] MEDS ORDERED: Bisacodyl 5 MG TAB PO PRN (00:48)
[2020-06-10] MEDS ORDERED: HYDROcodone/Acetaminophen 5/325 mg Tablet PO PRN (00:48)
[2020-06-10] MEDS ORDERED: Ondansetron PF 4 MG/2 ML Vial IVP PRN (00:48)
[2020-06-10] MEDS ORDERED: Morphine 2 MG/ML VIAL SLOW IVP PRN (00:54)
[2020-06-10] MEDS ORDERED: hydrALAZINE 20 MG/ML VIAL SLOW IVP PRN (00:54)
[2020-06-10 01:00] LABS: SARS-CoV-2 NAA Rapid Test Not Detected (NotDetected)
[2020-06-10 01:49] LABS: Troponin I Less than 0.010 ng/mL (< 0.028)
[2020-06-10 01:54] LABS: Anion Gap 14 mmol/L (10-20); BUN (Urea Nitrogen) 11 mg/dL (8.9-20.6); Calc. Creatinine Clearance 0 mL/min (70-130); Calcium 8.1 mg/dL (7.8-10.44); Carbon Dioxide 21 mmol/L (22-29); Chloride 103 mmol/L (98-107); Glucose 295 mg/dL (70-105); Potassium 4.1 mmol/L (3.5-5.1); Sodium 134 mmol/L (136-145)
[2020-06-10 03:16] VITALS: BMI 47.1
[2020-06-10] MEDS: Dextrose 5 % And 0.9 % NaCl 1,000 ML IV SCH ×3 (03:47→21:34)
[2020-06-10] MEDS: HumaLOG 300 UNITS/3 ML VIAL SC PRN ×3 (04:39→16:02)
[2020-06-10 06:27] LABS: Hemoglobin 11.8 g/dL (14.0-18.0); Mean Corpuscular Volume 84.5 fL (78.0-98.0); Mean Platelet Volume 7.8 fL (7.4-10.4); Platelet Count 193 thou/uL (130-400); RBC Distribution Width 13.1 % (11.5-14.5); Red Blood Cell (RBC) Count 4.37 mill/uL (4.70-6.10); White Blood Cell (WBC) Count 7.4 thou/uL (4.8-10.8)
[2020-06-10 06:32] LABS: Band 2 % (5-11); Lymphocytes 26 % (21-51); MDiff Complete? YES; Monocytes 5 % (0-10); Neutrophil 67 % (42-75); Platelet Morphology Comment Appears Adequate
[2020-06-10 06:33] LABS: ALT (SGPT) 26 U/L (8-55); AST (SGOT) 18 U/L (5-34); Albumin 3.3 g/dL (3.5-5.0); Alkaline Phosphatase 134 U/L (40-110); Anion Gap 13 mmol/L (10-20); BUN (Urea Nitrogen) 10 mg/dL (8.9-20.6); Bilirubin, Total 0.3 mg/dL (0.2-1.2); Calc. Creatinine Clearance 184 mL/min (70-130); Carbon Dioxide 20 mmol/L (22-29); Chloride 105 mmol/L (98-107); Glucose 277 mg/dL (70-105); Protein, Total 6.3 g/dL (6.0-8.3); Sodium 134 mmol/L (136-145)
[2020-06-10 06:40] LABS: Troponin I Less than 0.010 ng/mL (< 0.028)
[2020-06-10 07:42] LABS: INR-International Normal Ratio 1.1
[2020-06-10] MEDS: metFORMIN 500 MG TAB PO SCH ×2 (09:44→15:59)
[2020-06-10] MEDS: Famotidine/PF 20 mg/2ml Vial SLOW IVP SCH ×2 (09:44→20:34)
[2020-06-10] MEDS: Enoxaparin Sodium 40 MG/0.4 ML SYRINGE SC SCH (09:44)
[2020-06-10] MEDS: Atorvastatin Calcium 40 MG TAB PO SCH (09:44)
[2020-06-10] MEDS: Gabapentin 300 MG CAP PO SCH ×2 (09:44→20:33)
[2020-06-10] MEDS: FLUoxetine HCl 20 MG CAP PO SCH (09:44)
[2020-06-10] MEDS: levETIRAcetam 500 MG TAB PO SCH ×2 (09:45→20:34)
[2020-06-10] MEDS: hydrALAZINE 25 MG TAB PO SCH ×3 (09:45→20:33)
[2020-06-10] MEDS: guaiFENesin ER 600 MG TAB PO SCH ×2 (09:45→20:33)
[2020-06-10] MEDS ORDERED: Lidocaine 4% PF 5 ML AMP NEB SCH (11:30)
[2020-06-10] MEDS: Sodium Chloride 0.9% 1,000 ML IV SCH (12:04)
--- NOTE | 2020-06-10 12:48 | CON ---
DATE OF CONSULTATION: HISTORY OF PRESENT ILLNESS: Israel Torre is a 45-year-old obese gentleman who just underwent a sleep study, who now presents to the hospital with shortness of breath 3 days ago with chest pain, coughing some pink sputum. He has a history of asthma. CT chest now shows surprisingly a right hilar mass, right middle lobe and right lower lobe density and mediastinal adenopathy. He had a CT done eight months ago, surprisingly was unremarkable. He denies any weight loss. No fever or chills. PAST MEDICAL HISTORY: 1. History of seizure disorders. 2. Hypertension. 3. Renal failure. 4. Diabetes. 5. Obesity. 6. Sleep apnea. PREVIOUS SURGERIES: 1. Multiple sinuses. 2. Ear surgery. 3. Tonsils. SOCIAL HISTORY: Previous alcohol, tobacco, and drug abuse. ALLERGIES: DILANTIN. HOME MEDICATIONS: Include: 1. Lipitor. 2. Albuterol. 3. Flonase. 4. Prozac 20. 5. Omeprazole. 6. Reglan. 7. Gabapentin 300. 8. Tizanidine 5. 9. Metformin. 10. Keppra 500. 11. Hydroxyzine 50. 12. Hydralazine. PHYSICAL EXAMINATION: GENERAL: He is awake, alert, and responsive. VITAL SIGNS: Temperature 98, pulse 75, respirations 18, sats 90% on room air, and blood pressure 147/77. CHEST: Decreased breath sounds in right lung. CARDIAC: Normal S1 and S2. No gallops. ABDOMEN: No masses. LABORATORY DATA: Unremarkable. Glucose elevated. Coronavirus test was negative. IMPRESSION: 1. Large mass of right hilar with narrowing of the right middle lobe and right lower lobe bilateral and mediastinal adenopathy. 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 2. History of depression. 3. Diabetes. 4. Obesity. 5. Sleep apnea. He will undergo diagnostic bronchoscopy tomorrow. Further recommendation as above. TIME SPENT: 70 minute, 50% in direct patient care. Job ID: [id number]
--- NOTE | 2020-06-10 18:26 | PDOC.HOSPP ---
- Subjective Encounter Date: 06/10/20 Encounter Time: 13:30 Subjective: Patient seen for follow-up for lung mass. He denies chest pain. - Objective Vital Signs & Weight: Vital Signs (12 hours) Temp Pulse Resp BP BP Pulse Ox 06/10/20 15:59 79 158/88 H 06/10/20 15:33 98.7 F 79 16 158/88 H 97 06/10/20 14:00 85 15 98 06/10/20 11:00 98.7 F 74 18 147/77 H 95 06/10/20 10:36 77 20 99 06/10/20 09:45 76 06/10/20 07:52 98.4 F 76 18 153/96 H 95 06/10/20 07:25 70 18 96 Weight Weight 310 lb I&O: 06/09/20 06/10/20 06/11/20 06:59 06:59 06:59 Intake Total 1850 Balance 1850 Result Diagrams: 06/10/20 06:02 06/10/20 06:02 Additional Labs: Accuchecks 06/10/20 06/10/20 06/10/20 15:36 11:18 04:32 POC Glucose 251 H 228 H 253 H 06/10/20 06/09/20 06/09/20 01:04 23:39 21:42 POC Glucose 281 H 329 H 314 H Labs and MAR reviewed by sc Hospitalist ROS - Review of Systems Respiratory: reports: SOB with excertion. denies: cough, dry, shortness of breath, hemoptysis, pleuritic pain, sputum, wheezing Cardiovascular: denies: chest pain, palpitations, orthopnea, paroxysmal noc. dyspnea, edema, light headedness - Medication Medications: Active Medications Generic Name Dose Route Start Last Admin Trade Name Freq PRN Reason Stop Dose Admin Albuterol/Ipratropium 3 ml 06/10/20 02:30 06/10/20 14:00 Ipratropium/Albuterol Sulfate 3 Ml Neb NEB 3 ml [id number] ROSITA Administration Atorvastatin Calcium 80 mg 06/10/20 09:00 06/10/20 09:44 Atorvastatin Calcium 40 Mg Tab PO Not Given DAILY ROSITA Enoxaparin Sodium 40 mg 06/10/20 09:00 06/10/20 09:44 Enoxaparin Sodium 40 Mg/0.4 Ml Syringe SC Not Given 0900 ROSITA Famotidine 20 mg 06/10/20 09:00 06/10/20 09:44 Famotidine/Pf 20 Mg/2ml Vial SLOW IVP 20 mg Q12HR ROSITA Administration Fluoxetine HCl 20 mg 06/10/20 09:00 06/10/20 09:44 Fluoxetine Hcl 20 Mg Cap PO Not Given QAM ROSITA Gabapentin 300 mg 06/10/20 09:00 06/10/20 09:44 Gabapentin 300 Mg Cap PO 300 mg BID ROSITA Administration Guaifenesin 1,200 mg 06/10/20 09:00 06/10/20 09:45 Guaifenesin Er 600 Mg Tab PO Not Given Q12HR ROSITA Hydralazine HCl 25 mg 06/10/20 09:00 06/10/20 15:59 Hydralazine 25 Mg Tab PO 25 mg TID ROSITA Administration Dextrose/Sodium Chloride 1,000 mls @ 100 mls/hr 06/10/20 01:00 06/10/20 12:04 D5 0.9% Ns IV Not Given .Q10H ROSITA Sodium Chloride 1,000 mls @ 50 mls/hr 06/10/20 11:30 06/10/20 12:04 Normal Saline 0.9% IV 1,000 mls .Q20H ROSITA Administration Insulin Human Lispro 0 units 06/10/20 00:56 06/10/20 16:02 Humalog 300 Units/3 Ml Vial SC 6 unit .MODERATE SLIDING SC PRN Administration Moderate Correctional Scale Levetiracetam 500 mg 06/10/20 09:00 06/10/20 09:45 Levetiracetam 500 Mg Tab PO Not Given BID ROSITA Metformin HCl 500 mg 06/10/20 08:00 06/10/20 15:59 Metformin 500 Mg Tab PO 500 mg BID-WM ROSITA Administration Pantoprazole Sodium 40 mg 06/10/20 09:00 06/10/20 09:43 Pantoprazole 40 Mg Tab PO 40 mg DAILY ROSITA Administration Sodium Chloride 10 ml 06/10/20 09:00 06/10/20 09:45 Flush - Normal Saline 10 Ml Syringe IVF Not Given Q12HR [facility] Hospitalist Exam Vitals: Vital Signs (12 hours) Temp Pulse Resp BP BP Pulse Ox 06/10/20 15:59 79 158/88 H 06/10/20 15:33 98.7 F 79 16 158/88 H 97 06/10/20 14:00 85 15 98 06/10/20 11:00 98.7 F 74 18 147/77 H 95 06/10/20 10:36 77 20 99 06/10/20 09:45 76 06/10/20 07:52 98.4 F 76 18 153/96 H 95 06/10/20 07:25 70 18 96 Weight Weight 310 lb General Appearance: awake alert General - other findings: Morbid obesity Eye: anicteric sclera ENT: normocephalic atraumatic Neck: supple Heart: RRR Respiratory: CTAB Gastrointestinal: soft, non-tender Skin: no rashes Psychiatric: normal affect, normal behavior Hosp A/P - Plan Assessment: (1) Neoplasm of hilus of right lung Code(s): D49.1 - NEOPLASM OF UNSPECIFIED BEHAVIOR OF RESPIRATORY SYSTEM Status: Acute (2) Morbid Obesity Code(s): E66.9 - OBESITY, UNSPECIFIED Status: Chronic (3) Hypertension Code(s): I10 - ESSENTIAL (PRIMARY) HYPERTENSION Status: Chronic (4) Seizure disorder Code(s): G40.909 - EPILEPSY, UNSP, NOT INTRACTABLE, WITHOUT STATUS EPILEPTICUS Status: Chronic Plan: Pulmonology service consulted for possible bronchoscopy with biopsy. Continue ceftriaxone. Monitor vital signs and titrate antihypertensives as needed.. DVT prophylaxissubcutaneous heparin
[2020-06-10] MEDS: Acetaminophen 325 MG TAB PO PRN (19:44)
--- NOTE | 2020-06-10 20:03 | CON ---
DATE OF CONSULTATION: 06/10/2020 REASON FOR CONSULTATION: Hilar mass. HISTORY OF PRESENT ILLNESS: A 45-year-old, history of asthma, seizure activity, and prior cocaine and alcohol abuse, who has developed recurrent episodes of chest pain. He came once to the emergency room in January last year, was released. He came back in March with night sweats for about three nights, so he was tested for coronavirus and released. The test was negative and then the final event, he came on June 09 with shortness of breath, chest pain, which recurred three days before admission, mostly with deep inspiration. He was coughing a lot and had some brown and pink-tinged sputum. Anyway, so initial findings included pulse 98, respirations 18, temperature 98.8, O2 saturation 96%, and lungs were described as clear. Heart examination described as with tachycardia. Abdomen described as normal. He had a CTA, which showed a mass in the right hilum with lymphadenopathy around it. He is scheduled for bronchoscopy tomorrow, I believe by Dr. Simms. Currently, he is a little bit apprehensive, had been in n.p.o., but I think he was released to eat for lunch. No headaches. No visual symptoms. Some sore throat. No odynophagia. Still coughing intermittently. No chest pain anymore. No abdominal pain or diarrhea. No genitourinary symptoms. No joint symptoms. Has lost quite a bit of appetite. He used to be able to eat two or three plates of food on a daily basis, which now he cannot do anymore and has lost some weight. FAMILY HISTORY: Includes hypertension. 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 He has been unemployed since 2016 and is on social security because of his seizure activity. Has a history of drug use, mostly cocaine and alcoholic beverages excessively in the past. ALLERGIES: DILANTIN WITH HALLUCINATIONS. CURRENT MEDICATIONS: 1. Inhalers. 2. Ceftriaxone. 3. Decadron. 4. Prozac. 5. Neurontin. PHYSICAL EXAMINATION: VITAL SIGNS: Temperature normal, BP 140/77, heart rate 74, respirations 18, and O2 saturation 95%. SKIN: Normal. No lymphadenopathy. Peripheral IV access. GENERAL: Voiding spontaneously in the urinal. HEENT: Ocular movements conjugate. Oral cavity normal. NECK: Supple. No jugular vein distention. LUNGS: Symmetric. Breath sounds with diffusely scattered expiratory wheezing, mild to moderate, both right and left side. HEART: S1 and S2. Regular rate. No S3 or S4. ABDOMEN: Soft, not distended or tender. No ascites. No bladder distention. EXTREMITIES: No joint inflammatory activity. No edema. Pulses 1+ in dorsalis pedis. Plantar responses are flexor. No clonus. NEUROLOGIC: Awake, alert, and oriented. Follow commands. Recollection is good. Speech normal. LABORATORY DATA: White cell count 7.4, hemoglobin 11.8, platelets 193, 2% bands. INR 1.1. Albumin. Liver profile normal. Alkaline phosphatase 134. SARS-CoV-2 not detected. ASSESSMENT: Obesity; prior use of cigarettes for about 4 or 5 years, 18 years ago; history of cocaine and alcohol abuse in the past; some weight loss; anorexia; night sweats; and now lesion in the right hilar region with some lymphadenopathy as well. DISCUSSION: Differential diagnosis includes malignancy versus chronic infection such as mycobacterium tuberculosis or histoplasmosis. Germ cell tumor is another possibility. The patient is going for a procedure to get some tissue for pathology evaluation and I will go from there. I think a QuantiFERON has been submitted. He does not have sputum and no cavitary lesions are noted. If this is tuberculosis, risk of transmission is lower. It is probably a malignancy or some other process. Job ID: [id number] MTDD
[2020-06-10] MEDS: Dexamethasone 4 mg/ml Vial SLOW IVP SCH (20:34)
[2020-06-10] MEDS: cefTRIAXone\\ROCEPHIN 1 GM in Sodium Chloride 0.9% 100 ML IVPB SCH (21:35)
[2020-06-11] MEDS: metFORMIN 500 MG TAB PO SCH ×2 (08:00→16:56)
--- NOTE | 2020-06-11 08:17 | PDOC.HOSPP ---
- Subjective Encounter Date: 06/11/20 Encounter Time: 08:09 Subjective: feels ok , waiting for bronchoscopy - Objective Vital Signs & Weight: Vital Signs (12 hours) Temp Pulse Resp BP BP Pulse Ox 06/11/20 07:23 80 20 98 06/11/20 04:00 97.7 F 95 20 126/75 97 06/11/20 03:29 84 20 96 06/11/20 00:00 97.8 F 84 18 141/84 H 97 06/10/20 22:48 16 06/10/20 20:33 95 167/80 H Weight Weight 310 lb I&O: 06/10/20 06/11/20 06/12/20 06:59 06:59 06:59 Intake Total 2450 Output Total 800 Balance 1650 Result Diagrams: 06/10/20 06:02 06/10/20 06:02 Additional Labs: Accuchecks 06/11/20 06/10/20 06/10/20 05:04 19:50 15:36 POC Glucose 268 H 231 H 251 H 06/10/20 11:18 POC Glucose 228 H Hospitalist ROS - Medication Medications: Active Medications Generic Name Dose Route Start Last Admin Trade Name Freq PRN Reason Stop Dose Admin Acetaminophen 650 mg 06/10/20 00:48 06/10/20 19:44 Acetaminophen 325 Mg Tab PO 650 mg Q4H PRN Administration Headache/Fever/Mild Pain (1-3) Albuterol/Ipratropium 3 ml 06/10/20 02:30 06/11/20 07:23 Ipratropium/Albuterol Sulfate 3 Ml Neb NEB 3 ml [id number] ROSITA Administration Atorvastatin Calcium 80 mg 06/10/20 09:00 06/10/20 09:44 Atorvastatin Calcium 40 Mg Tab PO Not Given DAILY ROSITA Dexamethasone 6 mg 06/10/20 21:00 06/10/20 20:34 Dexamethasone 4 Mg/Ml Vial SLOW IVP 6 mg Q12HR ROSITA Administration Enoxaparin Sodium 40 mg 06/10/20 09:00 06/10/20 09:44 Enoxaparin Sodium 40 Mg/0.4 Ml Syringe SC Not Given 0900 ROSITA Famotidine 20 mg 06/10/20 09:00 06/10/20 20:34 Famotidine/Pf 20 Mg/2ml Vial SLOW IVP 20 mg Q12HR ROSITA Administration Fluoxetine HCl 20 mg 02/09/21 09:00 06/10/20 09:44 Fluoxetine Hcl 20 Mg Cap PO Not Given QAM ROSITA Gabapentin 300 mg 06/10/20 09:00 06/10/20 20:33 Gabapentin 300 Mg Cap PO 300 mg BID ROSITA Administration Guaifenesin 1,200 mg 06/10/20 09:00 06/10/20 20:33 Guaifenesin Er 600 Mg Tab PO 1,200 mg Q12HR ROSITA Administration Hydralazine HCl 25 mg 06/10/20 09:00 06/10/20 20:33 Hydralazine 25 Mg Tab PO 25 mg TID ROSITA Administration Ceftriaxone Sodium 1 gm/ 100 mls @ 200 mls/hr 06/10/20 22:00 06/10/20 21:35 Sodium Chloride IVPB 100 mls Q24HR ROSITA Administration Sodium Chloride 1,000 mls @ 50 mls/hr 06/10/20 11:30 06/10/20 12:04 Normal Saline 0.9% IV 1,000 mls .Q20H ROSITA Administration Insulin Human Lispro 0 units 06/10/20 00:56 06/10/20 16:02 Humalog 300 Units/3 Ml Vial SC 6 unit .MODERATE SLIDING SC PRN Administration Moderate Correctional Scale Levetiracetam 500 mg 06/10/20 09:00 06/10/20 20:34 Levetiracetam 500 Mg Tab PO 500 mg BID ROSITA Administration Metformin HCl 500 mg 06/10/20 08:00 06/10/20 15:59 Metformin 500 Mg Tab PO 500 mg BID-WM ROSITA Administration Pantoprazole Sodium 40 mg 06/10/20 09:00 06/10/20 09:43 Pantoprazole 40 Mg Tab PO 40 mg DAILY ROSITA Administration Sodium Chloride 10 ml 06/10/20 09:00 06/10/20 23:03 Flush - Normal Saline 10 Ml Syringe IVF 10 ml Q12HR ROSITA Administration Hospitalist Exam Vitals: Vital Signs (12 hours) Temp Pulse Resp BP BP Pulse Ox 06/11/20 07:23 80 20 98 06/11/20 04:00 97.7 F 95 20 126/75 97 06/11/20 03:29 84 20 96 06/11/20 00:00 97.8 F 84 18 141/84 H 97 06/10/20 22:48 16 06/10/20 20:33 95 167/80 H Weight Weight 310 lb General Appearance: awake alert Neck: no JVD Heart: RRR, no murmur Respiratory: CTAB Gastrointestinal: soft, normal bowel sounds Extremities: no edema Hosp A/P (1) Neoplasm of hilus of right lung Code(s): D49.1 - NEOPLASM OF UNSPECIFIED BEHAVIOR OF RESPIRATORY SYSTEM Status: Acute (2) DM type 2 (diabetes mellitus, type 2) Status: Chronic Qualifiers: Diabetes mellitus press tender long goods insulin use: without correction use Diabetes mellitus complication status: without complication Qualified Code(s): E11.9 - Type 2 diabetes mellitus without complications (3) Hypertension Code(s): I10 - ESSENTIAL (PRIMARY) HYPERTENSION Status: Chronic Qualifiers: Hypertension type: essential hypertension Qualified Code(s): I10 - Essential (primary) hypertension (4) Seizure disorder Code(s): G40.909 - EPILEPSY, UNSP, NOT INTRACTABLE, WITHOUT STATUS EPILEPTICUS Status: Chronic - Plan bronchoscopy today accu/ss/metformin cont antiseizrure, BP meds
[2020-06-11] MEDS ORDERED: Fentanyl 100 MCG/2 ML VIAL ONE ×2 (09:25→11:08)
--- NOTE | 2020-06-11 09:33 | PRG ---
DATE OF SERVICE: 06/11/2020 OBJECTIVE: VITAL SIGNS: This morning, temperature 98, pulse , sats 95% on room air, blood pressure 140/77. CHEST: No wheezing. No crackles. CARDIAC: Normal S1 and S2. No gallops. ABDOMEN: No masses. ASSESSMENT: Right hilar mass, bronchogenic carcinoma, morbid obesity, sleep apnea. PLAN: Diagnostic bronchoscopy to perform today. Further recommendation thereafter. Job ID: [id number]
[2020-06-11] MEDS ORDERED: Lidocaine 1% (PF) 30 ML VIAL ONE ×2 (09:36)
[2020-06-11] MEDS ORDERED: Lidocaine 2% Jelly 5 ML TUBE ONE ×2 (09:36)
[2020-06-11] MEDS ORDERED: Lidocaine 1% PF 5 ML VIAL ONE ×2 (09:37)
[2020-06-11] MEDS ORDERED: PROPOFOL 200 MG/20 ML VIAL ONE (09:37)
[2020-06-11] MEDS ORDERED: Glycopyrrolate 0.2 MG/ML 5 ML SYRINGE ONE (09:37)
[2020-06-11] MEDS ORDERED: Ondansetron PF 4 MG/2 ML Vial ONE (09:37)
[2020-06-11] MEDS ORDERED: Rocuronium Bromide 10 MG/ML (10ML VIAL) ONE (09:37)
[2020-06-11] MEDS ORDERED: Succinylcholine 200 MG/10 ml SYRINGE FS ONE (09:37)
[2020-06-11] MEDS ORDERED: Propofol 1,000 MG/100 ML VIAL IV ONE (10:37)
[2020-06-11] MEDS ORDERED: Propofol 500 MG/50 ML VIAL ONE (10:37)
[2020-06-11] MEDS ORDERED: SUGAMMADEX SODIUM 500 MG/5 ML VIAL ONE (10:48)
[2020-06-11] MEDS ORDERED: Promethazine HCl 25 MG/ML VIAL SLOW IVP PRN (11:15)
[2020-06-11] MEDS ORDERED: Ondansetron HCl/PF 4 MG/2 ML Vial IVP PRN (11:15)
[2020-06-11] MEDS ORDERED: Promethazine HCl 25 MG/ML VIAL IM PRN (11:15)
[2020-06-11] MEDS ORDERED: HYDROmorphone 2 MG/ML VIAL SLOW IVP PRN (11:15)
[2020-06-11] MEDS: Atorvastatin Calcium 40 MG TAB PO SCH (13:04)
[2020-06-11] MEDS: Enoxaparin Sodium 40 MG/0.4 ML SYRINGE SC SCH (13:04)
[2020-06-11] MEDS: Sodium Chloride 0.9% 1,000 ML IV SCH (13:05)
[2020-06-11] MEDS: levETIRAcetam 500 MG TAB PO SCH ×2 (13:06→21:16)
[2020-06-11] MEDS: hydrALAZINE 25 MG TAB PO SCH ×3 (13:06→21:12)
[2020-06-11] MEDS: Gabapentin 300 MG CAP PO SCH ×2 (13:06→21:16)
[2020-06-11] MEDS: guaiFENesin ER 600 MG TAB PO SCH ×2 (13:07→21:11)
[2020-06-11] MEDS: Dexamethasone 4 mg/ml Vial SLOW IVP SCH ×2 (13:07→21:12)
[2020-06-11] MEDS: FLUoxetine HCl 20 MG CAP PO SCH (13:07)
[2020-06-11] MEDS: Famotidine/PF 20 mg/2ml Vial SLOW IVP SCH ×2 (13:08→21:12)
[2020-06-11] MEDS: Dextrose 5 % And 0.9 % NaCl 1,000 ML IV SCH (13:11)
[2020-06-11] MEDS: HumaLOG 300 UNITS/3 ML VIAL SC PRN ×3 (13:11→21:28)
--- NOTE | 2020-06-11 13:29 | OP ---
DATE OF PROCEDURE: 06/11/2020 PROCEDURE PERFORMED: Bronchoscopy with biopsy. INDICATION: Right hilar mass, narrowing of the right middle lobe, lower lobe, right bronchogenic carcinoma. POSTBRONCHOSCOPY DIAGNOSIS: Marked narrowing of the right middle lobe with nodular friable mucosa, spur to the middle lobe was thickened. The basilar segments and mucosa were thickened. Rule out bronchogenic carcinoma. DESCRIPTION OF PROCEDURE: After informed consent, the patient under general anesthesia, #[address] Using adapter, the flexible video bronchoscope was then passed. Distal trachea was normal. Right lung upper lobe was normal. Middle lobe bronchus intermedius distally had thickened mucosa. The spur between the middle lobe and lower lobe was markedly thickened, friable, bled to touch. The mucosa to the middle lobe was also narrowed and thickened. The basilar segments particularly the right lower lobe mainstem bronchus with thickened and narrowed. This area was lavaged with normal saline. The left lung inspected. Left upper and left lower lobe, no endobronchial disease was seen. Thereafter, multiple brushings and biopsy were done of the abnormal mucosa corresponding to the right middle lobe orifice. There was some brisk bleeding, which had to be controlled with epinephrine, a total of 1 to 10,000. The patient's oxygen saturation dropped briefly during the procedure. He was bagged. His oxygen concentration was increased. His sats remained 95% to 98% thereafter. The patient otherwise tolerated the procedure well. Washings were sent for cytology, AFB smear and culture, fungal smear and culture. The brushings obtained from the same area, right middle lobe orifice, which will be sent for cytology. Biopsies were sent to Histopathology. Results of the above information will be mailed to the family when they are available. He will be extubated as per general anesthesia, eventually transferred to his room in stable condition. Both lungs were inspected postprocedure. No further bleeding was noted. Job ID: [id number]
[2020-06-11] MEDS: Acetaminophen 325 MG TAB PO PRN (21:15)
[2020-06-11] MEDS: cefTRIAXone\\ROCEPHIN 1 GM in Sodium Chloride 0.9% 100 ML IVPB SCH (21:17)
[2020-06-12] MEDS: HumaLOG 300 UNITS/3 ML VIAL SC PRN ×4 (05:14→21:10)
[2020-06-12] MEDS: Acetaminophen 325 MG TAB PO PRN ×3 (05:20→21:00)
--- NOTE | 2020-06-12 06:24 | PRG ---
DATE OF SERVICE: 06/11/2020 SUBJECTIVE: Mr. Torre had a bronchoscopy. Samples have been submitted for testing. Initial smears and two AFB samples are negative. There was some abnormal mucosal surface which bled and samples from biopsy have been submitted. They are pending at this time. I do not see that needle biopsy was done of the mass, although looks like there was a lung biopsy here, which is pending. The patient is afebrile. LABORATORY DATA: White blood cell count 7.4, hemoglobin 11.8, platelets 193 with 67% neutrophils, 2% bands. Creatinine 1.02. Transaminases normal. Alkaline phosphatase 134. Albumin 3.3. ASSESSMENT AND DISCUSSION: Obesity, prior use of cigarettes for about 4 or 5 years 18 years ago, history of cocaine and alcohol abuse in the past, weight loss, anorexia, night sweats, and lesion in the right hilar region with regional lymphadenopathy as well. Await on samples, histopathology, and cultures. I think that histopathology will determine next steps. If it does not show malignancy, then we will have to assume that it is mycobacterial infection or fungal infection are the likely scenarios here. Job ID: [id number]
[2020-06-12] MEDS: Enoxaparin Sodium 40 MG/0.4 ML SYRINGE SC SCH (08:35)
[2020-06-12] MEDS: metFORMIN 500 MG TAB PO SCH ×2 (08:38→16:22)
[2020-06-12] MEDS: Famotidine/PF 20 mg/2ml Vial SLOW IVP SCH ×2 (08:38→20:59)
[2020-06-12] MEDS: hydrALAZINE 25 MG TAB PO SCH ×3 (08:38→20:57)
[2020-06-12] MEDS: Atorvastatin Calcium 40 MG TAB PO SCH (08:38)
[2020-06-12] MEDS: guaiFENesin ER 600 MG TAB PO SCH ×2 (08:38→20:57)
[2020-06-12] MEDS: levETIRAcetam 500 MG TAB PO SCH ×2 (08:38→21:00)
[2020-06-12] MEDS: FLUoxetine HCl 20 MG CAP PO SCH (08:38)
[2020-06-12] MEDS: Dexamethasone 4 mg/ml Vial SLOW IVP SCH ×2 (08:39→20:58)
[2020-06-12] MEDS: Gabapentin 300 MG CAP PO SCH ×2 (08:39→20:59)
--- NOTE | 2020-06-12 09:34 | PDOC.HOSPP ---
- Subjective Encounter Date: 06/12/20 Encounter Time: 09:32 Subjective: no fever, chills, sob - Objective Vital Signs & Weight: Vital Signs (12 hours) Temp Pulse Resp BP BP Pulse Ox 06/12/20 08:38 62 127/74 06/12/20 07:19 62 16 98 06/12/20 07:00 98.2 F 82 20 127/74 98 06/12/20 04:00 97.8 F 83 20 132/88 99 06/12/20 00:00 98.6 F 90 20 119/69 95 Weight Weight 310 lb I&O: 06/11/20 06/12/20 06/13/20 06:59 06:59 06:59 Intake Total 2450 3470 Output Total 800 Balance 1650 3470 Result Diagrams: 06/10/20 06:02 06/10/20 06:02 Additional Labs: Accuchecks 06/12/20 06/11/20 06/11/20 05:05 21:01 16:30 POC Glucose 318 H 233 H 165 H 06/11/20 12:02 POC Glucose 234 H Hospitalist ROS - Medication Medications: Active Medications Generic Name Dose Route Start Last Admin Trade Name Freq PRN Reason Stop Dose Admin Acetaminophen 650 mg 06/10/20 00:48 06/12/20 05:20 Acetaminophen 325 Mg Tab PO 650 mg Q4H PRN Administration Headache/Fever/Mild Pain (1-3) Albuterol/Ipratropium 3 ml 06/10/20 02:30 06/12/20 07:19 Ipratropium/Albuterol Sulfate 3 Ml Neb NEB 3 ml [id number] ROSITA Administration Atorvastatin Calcium 80 mg 06/10/20 09:00 06/12/20 08:38 Atorvastatin Calcium 40 Mg Tab PO 80 mg DAILY ROSITA Administration Dexamethasone 6 mg 06/10/20 21:00 06/12/20 08:39 Dexamethasone 4 Mg/Ml Vial SLOW IVP 06/12/20 21:01 6 mg Q12HR ROSITA Administration Enoxaparin Sodium 40 mg 06/10/20 09:00 06/12/20 08:35 Enoxaparin Sodium 40 Mg/0.4 Ml Syringe SC 40 mg 0900 ROSITA Administration Famotidine 20 mg 06/10/20 09:00 06/12/20 08:38 Famotidine/Pf 20 Mg/2ml Vial SLOW IVP 20 mg Q12HR ROSITA Administration Fluoxetine HCl 20 mg 06/10/20 09:00 06/12/20 08:38 Fluoxetine Hcl 20 Mg Cap PO 20 mg QAM ROSITA Administration Gabapentin 300 mg 06/10/20 09:00 06/12/20 08:39 Gabapentin 300 Mg Cap PO 300 mg BID ROSITA Administration Guaifenesin 1,200 mg 06/10/20 09:00 06/12/20 08:38 Guaifenesin Er 600 Mg Tab PO 1,200 mg Q12HR ROSITA Administration Hydralazine HCl 25 mg 06/10/20 09:00 06/12/20 08:38 Hydralazine 25 Mg Tab PO 25 mg TID ROSITA Administration Insulin Human Lispro 0 units 06/10/20 00:56 06/12/20 05:14 Humalog 300 Units/3 Ml Vial SC 8 unit .MODERATE SLIDING SC PRN Administration Moderate Correctional Scale Levetiracetam 500 mg 06/10/20 09:00 06/12/20 08:38 Levetiracetam 500 Mg Tab PO 500 mg BID ROSITA Administration Metformin HCl 500 mg 06/10/20 08:00 06/12/20 08:38 Metformin 500 Mg Tab PO 500 mg BID-WM ROSITA Administration Pantoprazole Sodium 40 mg 06/10/20 09:00 06/12/20 08:39 Pantoprazole 40 Mg Tab PO 40 mg DAILY ROSITA Administration Sodium Chloride 10 ml 06/10/20 09:00 06/12/20 08:40 Flush - Normal Saline 10 Ml Syringe IVF 10 ml Q12HR ROSITA Administration Hospitalist Exam Vitals: Vital Signs (12 hours) Temp Pulse Resp BP BP Pulse Ox 06/12/20 08:38 62 127/74 06/12/20 07:19 62 16 98 06/12/20 07:00 98.2 F 82 20 127/74 98 06/12/20 04:00 97.8 F 83 20 132/88 99 06/12/20 00:00 98.6 F 90 20 119/69 95 Weight Weight 310 lb General Appearance: awake alert Neck: no JVD Heart: RRR, no murmur Respiratory: CTAB Gastrointestinal: soft, normal bowel sounds Extremities: no edema Hosp A/P (1) Neoplasm of hilus of right lung Code(s): D49.1 - NEOPLASM OF UNSPECIFIED BEHAVIOR OF RESPIRATORY SYSTEM Status: Acute (2) DM type 2 (diabetes mellitus, type 2) Status: Chronic Qualifiers: Diabetes mellitus superintendent [employer] insulin use: without fpc use Diabetes mellitus complication status: without complication Qualified Code(s): E11.9 - Type 2 diabetes mellitus without complications (3) Hypertension Code(s): I10 - ESSENTIAL (PRIMARY) HYPERTENSION Status: Chronic Qualifiers: Hypertension type: essential hypertension Qualified Code(s): I10 - Essential (primary) hypertension (4) Seizure disorder Code(s): G40.909 - EPILEPSY, UNSP, NOT INTRACTABLE, WITHOUT STATUS EPILEPTICUS Status: Chronic - Plan post bronchoscopy, path pending accu/ss/metformin cont antiseizrure, BP meds
--- NOTE | 2020-06-12 09:37 | PRG ---
DATE OF SERVICE: 06/12/2020 SUBJECTIVE: A 45-year-old obese gentleman with sleep apnea, who underwent a bronchoscopy, was found to have rather impressive right middle lobe, lower lobe, abnormality of the mucosa including the distal bronchus intermedius. Biopsy was pending. OBJECTIVE: VITAL SIGNS: Temperature 98, pulse 82, blood pressure 127/74, and sats 98% on room air. CHEST: No wheezing. No crackles. CARDIAC: Normal S1. ABDOMEN: No masses. IMPRESSION: Respiratory failure, morbid obesity, abnormal right lung mass, probably bronchogenic carcinoma. No reason to suspect tuberculosis. I would discontinue isolation, await path. Eventually home. Job ID: [id number]
[2020-06-12] MEDS: Guaifenesin DM 100-10/5 ML UDCUP PO PRN ×2 (10:06→21:08)
[2020-06-12] MEDS: Cefdinir 300 MG CAP PO SCH (20:57)
[2020-06-13] MEDS: Acetaminophen 325 MG TAB PO PRN ×2 (05:44→12:01)
[2020-06-13] MEDS: HumaLOG 300 UNITS/3 ML VIAL SC PRN ×2 (05:45→11:50)
[2020-06-13] MEDS: Guaifenesin DM 100-10/5 ML UDCUP PO PRN (05:51)
[2020-06-13] MEDS: guaiFENesin ER 600 MG TAB PO SCH (08:26)
[2020-06-13] MEDS: Gabapentin 300 MG CAP PO SCH (08:26)
[2020-06-13] MEDS: hydrALAZINE 25 MG TAB PO SCH ×2 (08:27→15:32)
[2020-06-13] MEDS: Atorvastatin Calcium 40 MG TAB PO SCH (08:27)
[2020-06-13] MEDS: Cefdinir 300 MG CAP PO SCH (08:27)
[2020-06-13] MEDS: levETIRAcetam 500 MG TAB PO SCH (08:27)
[2020-06-13] MEDS: Famotidine/PF 20 mg/2ml Vial SLOW IVP SCH (08:28)
[2020-06-13] MEDS: FLUoxetine HCl 20 MG CAP PO SCH (08:29)
[2020-06-13] MEDS: Enoxaparin Sodium 40 MG/0.4 ML SYRINGE SC SCH (09:32)
[2020-06-13 09:39] LABS: QuantiFERON-TB Gold Plus Negative (Negative)
--- NOTE | 2020-06-13 09:52 | PRG ---
DATE OF SERVICE: 06/13/2020 SUBJECTIVE: This morning, he is awake, alert, responsive. He is doing well. OBJECTIVE: VITAL SIGNS: Temperature 98, pulse 84, respiratory rate 18, sats . CHEST: No wheezing. No crackles. CARDIAC: Normal S1 . Respiratory failure, right lung mass. All his pathology and biopsy were all negative. Cultures so far negative. Rather unusual finding. IMPRESSION: Right hilar mass, abnormal mucosa, negative biopsy, negative cultures, morbid obesity, sleep apnea, diabetes. PLAN: He is discharged home. He can see in the office in 2 to 3 weeks, further workup at that time. Job ID: [id number]
[2020-06-13 11:39] LABS: Fungus Stain Final report (.)
[2020-06-13] MEDS: metFORMIN 500 MG TAB PO SCH (12:05)
--- NOTE | 2020-06-13 13:53 | PDOC.DS.DS ---
Provider Date of Admission: 06/10/20 12:22 Date of Discharge: 06/13/20 Admitting Provider: Benoit Darden MD Consultations: Infectious Disease, Pulmonary Primary Care Physician: NIKI Vazquez Course Hospital Course: Mr. Blackman is a 45-year-old patient who presented to the hospital with c omplaint of shortness of breath and throat pain. He was hospitalized for further evaluation and management. He had a CT of the chest obtained as part of his evaluation and was noted to have a new large mediastinal mass. He was subsequently seen by both ID services and pulmonary and he underwent bronchoscopy with biopsy. He was not found to have any evidence of malignancy or tuberculosis. His QuantiFERON TB test was negative. AFB smear also did not show any evidence of tuberculosis. Fungal cultures are still pending. He does have a very significant family history of cancer. Surprisingly the biopsy did not show any evidence of cancer. At any rate I suspect he is going to need outpatient PET scan and this can be scheduled prior to discharge home. He will have follow-up scheduled with both pulmonary and ID services. He is going to likely need a PET scan again this will be arranged as outpatient. I have requested case management to help set this up. The patient otherwise is medically stable for discharge and he can go home today. Resuscitation Status: 06/10/20 00:48 Resuscitation Status Routine Resuscitation Status: FULL: Full Resuscitation Lab Results: 06/10/20 06:02 06/10/20 06:02 Microbiology - Entire Visit 06/11/20 10:40 Pre Bronchial washings - Organism 1 Respiratory Culture - Preliminary 06/11/20 10:40 Post Bronchial washings - Organism 2 Respiratory Culture - Preliminary 06/11/20 10:40 Post Bronchial washings - Organism 2 Direct Acid Fast Bacilli Smear - Final 06/11/20 10:40 Post Bronchial washings - Organism 2 Acid Fast Bacilli Smear - Pending 06/11/20 10:40 Post Bronchial washings - Organism 2 Acid Fast Bacilli Culture - Preliminary Specimen has been received and culture in progress. No Growth to date. 06/11/20 10:40 Pre Bronchial washings - Organism 1 Direct Acid Fast Bacilli Smear - Final 06/11/20 10:40 Pre Bronchial washings - Organism 1 Acid Fast Bacilli Smear - Pending 06/11/20 10:40 Pre Bronchial washings - Organism 1 Acid Fast Bacilli Culture - Preliminary Specimen has been received and culture in progress. No Growth to date. Vitals: Vital Signs (12 hours) Temp Pulse Resp BP BP Pulse Ox 06/13/20 11:41 98.7 F 90 18 147/88 H 96 06/13/20 11:38 84 18 147/88 H 06/13/20 10:07 80 16 99 06/13/20 08:45 99 06/13/20 08:27 84 06/13/20 08:23 98 F 84 18 155/88 H 97 06/13/20 08:00 98 F 84 18 155/88 H 97 06/13/20 07:09 97.7 F 84 20 148/84 H 97 06/13/20 06:42 83 16 97 06/13/20 04:00 97.9 F 81 20 143/81 H 99 Weight Weight 310 lb Physical Exam: The patient was seen and examined on the day of discharge. General Appearance: NAD, awake alert Eye: PERRL, anicteric sclera ENT: normocephalic atraumatic, no oropharyngeal lesions Neck: supple, symmetric, no JVD Respiratory: CTAB, no wheezes, no rales, no ronchi Cardiovascular: RRR, no murmur, no gallops Gastrointestinal: soft, non-tender, non-distended Neurological: cranial nerve grossly intact PSYCH: normal affect, normal behavior, A&O x 3 Problem (1) Mass of right lung Code(s): R91.8 - OTHER NONSPECIFIC ABNORMAL FINDING OF LUNG FIELD Status: Acute Plan: Biopsy obtained did not show any evidence of malignancy or tuberculosis. However there is a very strong family history of lung cancer and colon cancer 2. He is going to need outpatient PET scan. This is being arranged by case management. (2) DM type 2 (diabetes mellitus, type 2) Status: Chronic Qualifiers: Diabetes mellitus manager intermediate insulin use: without manager intermediate use Diabetes mellitus complication status: without complication Qualified Code(s): E11.9 - Type 2 diabetes mellitus without complications (3) Seizure disorder Code(s): G40.909 - EPILEPSY, UNSP, NOT INTRACTABLE, WITHOUT STATUS EPILEPTICUS Status: Chronic Time Spent in discharge related activities (mins): 30 Plan Prescriptions: Benzonatate [Tessalon] 100 mg PO TID PRN #30 cap PRN Reason: Cough Home Medications: Medication Instructions Recorded Confirmed Type FLUoxetine HCl [Fluoxetine HCl] 20 mg PO QAM 12/16/19 06/10/20 History Gabapentin 300 mg PO BID 12/16/19 06/10/20 History hydrOXYzine Pamoate 50 mg PO BID 12/16/19 06/10/20 History levETIRAcetam [Levetiracetam] 500 mg PO BID 12/16/19 06/10/20 History Atorvastatin Calcium [Lipitor] 80 mg PO DAILY 12/17/19 06/10/20 History hydrALAZINE [Apresoline] 25 mg PO TID 12/17/19 06/10/20 History tiZANidine HCl [Tizanidine HCl] 4 mg PO TID PRN 12/17/19 06/10/20 History Albuterol Sulfate [Albuterol 2.5 mg NEB Q6H PRN 02/14/20 06/10/20 History Sulfate Neb] Fluticasone Propionate [Flonase 1 spray EA NARE DAILY 02/14/20 06/10/20 History Allergy Relief] Metoclopramide HCl [Reglan] 5 mg PO QID PRN 02/14/20 06/10/20 History Omeprazole 40 mg PO DAILY 02/14/20 06/10/20 History Ondansetron [Zofran ODT] 4 mg PO Q6HR PRN 02/14/20 06/10/20 History metFORMIN [Glucophage] 500 mg PO BID-WM #60 tab 02/15/20 06/10/20 Rx Benzonatate [Tessalon] 100 mg PO TID PRN #30 cap 06/13/20 Rx Allergies: phenytoin [From Dilantin] Allergy (Verified 06/10/20 03:10) red wasps Allergy (Uncoded 06/10/20 03:10) Activity:: Activity as Tolerated Nourishment:: Diabetic Diet Therapies:: Not Applicable Equipment/Supplies:: Not Applicable Referrals: Bhavana Benites FNP [Primary Care Provider] - Disposition: HOME Quality CORE MEASURES:: N/A
[2020-06-13 16:53] VITALS: BP 143/81; TEMP 99
--- NOTE | 2020-06-13 17:47 | PRG ---
DATE OF SERVICE: 06/13/2020 SUBJECTIVE: Mr. Torre is doing well. He is coughing intermittently, a little bit of brown sputum. No chest pain. No abdominal pain or diarrhea. OBJECTIVE: VITAL SIGNS: He has been afebrile, blood pressure 140/81, heart rate 89, respirations 18, and O2 saturation 96. LUNGS: Clear. HEART: S1 and S2, regular rate. ABDOMEN: Soft, not distended. EXTREMITIES: Moves extremities equally. LABORATORY DATA: White cell count 7.4, hemoglobin 11.8, platelets 193. INR 1.1. Chemistry was not repeated. QuantiFERON was negative. SARS-CoV-2 not detected. Fungal stain from the lung biopsy was negative. The pathology was not diagnostic, and most likely, this was due to sampling error. The acid-fast stains are negative, 2 specimens. ASSESSMENT AND DISCUSSION: Obesity, former smoker, cocaine and alcohol use in the past, anorexia, sweats, lesion right hilar region with lymphadenopathy with negative results on biopsy and brushings following bronchoscopy. This is probably due to sampling error. Malignant still the more likely scenario and the next step would be a PET scan, and if positive, then proceed with further attempts at biopsy may be via Interventional Radiology or CT surgery with mediastinoscopy. Job ID: [id number]
[2020-07-11 09:16] LABS: Fungus Culture Final report (.)
== END 2020-06-13 17:11 | disposition home or self-care (01) | DRG 204 ==
LOC: ERS 17:56 → T4-A 23:47 → OBSVTOIN 06-10 12:22
PROVIDERS: ADMIT Internal Medicine; ATTEND Hospitalist
PROC: 0BDD8ZX Extraction of Right Middle Lung Lobe, Via Natural or Artificial Opening Endoscopic, Diagnostic (ICD-10-PCS; principal; 2020-06-11)
PROC: 0BD58ZX Extraction of Right Middle Lobe Bronchus, Via Natural or Artificial Opening Endoscopic, Diagnostic (ICD-10-PCS; 2020-06-11)
DX: R91.8 Other nonspecific abnormal finding of lung field (principal); J96.90 Respiratory failure, unspecified, unspecified whether with hypoxia or hypercapnia; Z68.42 Body mass index [BMI] 45.0-49.9, adult; Z20.822 Contact with and (suspected) exposure to COVID-19; E11.9 Type 2 diabetes mellitus without complications; G40.909 Epilepsy, unspecified, not intractable, without status epilepticus; F14.10 Cocaine abuse, uncomplicated; I10 Essential (primary) hypertension; J45.909 Unspecified asthma, uncomplicated; G47.30 Sleep apnea, unspecified; E66.01 Morbid (severe) obesity due to excess calories; Z88.8 Allergy status to other drugs, medicaments and biological substances; Z79.899 Other long term (current) drug therapy; Z79.84 Long term (current) use of oral hypoglycemic drugs; Z80.1 Family history of malignant neoplasm of trachea, bronchus and lung; Z87.891 Personal history of nicotine dependence
CPT/HCPCS: 0240U; 36415; 36416; 71045; 71275; 80053; 82550; 83880; 84484; 85007; 85025; 85027; 85379; 85610; 85652; 85730; 86140; 86480; 87070; 87102; 87116; 87205; 87206; 87385; 87635; 88104; 88112; 88305; 88312; 93005; 94640; 96365; 96375; J0696; J1100; J1650; J1815; J1885; J2001; J2405; J2704; J3010; J3490; J7620; Q9967; S0028; U0003; U0005

== ENCOUNTER 2020-06-17 15:51 | Emergency (ER) | payer MEDICARE, MEDICAID ==
--- NOTE | 2020-06-17 19:24 | RAD ---
PA CHEST: History: Bronchitis, cough Comparison: 06-09-2020 Correlation: CT chest 06-09-2020 which revealed a right hilar mass and adenopathy. FINDINGS: The lungs appear clear on the PA chest. The right hilar density is stable from the exam of 06-09-2020. No interval change noted. IMPRESSION: Stable chest findings. POS: AGW
[2020-06-17 20:51] LABS: #Basophils 0.1 thou/uL (0.0-0.2); #Eosinphils 0.4 thou/uL (0.0-0.7); #Lymphocytes 3.1 thou/uL (1.20-3.40); #Neutrophils 4.5 thou/uL (1.40-6.50); %Basophils 0.7 % (0.0-1.0); %Eosinophils 4.6 % (0.0-10.0); %Lymphocytes 34.1 % (21.0-51.0); %Monocytes 10.8 % (0.0-10.0); %Neutrophils 49.8 % (42.0-75.0); Mean Corpuscular Hemoglobin 27.8 pg (27.0-31.0); Mean Corpuscular Volume 84.3 fL (78.0-98.0); Mean Platelet Volume 7.1 fL (7.4-10.4); Platelet Count 317 thou/uL (130-400); RBC Distribution Width 12.9 % (11.5-14.5); Red Blood Cell (RBC) Count 5.02 mill/uL (4.70-6.10); White Blood Cell (WBC) Count 9.1 thou/uL (4.8-10.8)
[2020-06-17 21:16] LABS: ALT (SGPT) 45 U/L (8-55); AST (SGOT) 36 U/L (5-34); Albumin 4.1 g/dL (3.5-5.0); Alkaline Phosphatase 151 U/L (40-110); Anion Gap 14 mmol/L (10-20); BUN (Urea Nitrogen) 7 mg/dL (8.9-20.6); Bilirubin, Total 0.5 mg/dL (0.2-1.2); Calc. Creatinine Clearance 0 mL/min (70-130); Carbon Dioxide 27 mmol/L (22-29); Chloride 102 mmol/L (98-107); Globulin 3.2 g/dL (2.4-3.5); Glucose 128 mg/dL (70-105); Protein, Total 7.3 g/dL (6.0-8.3); Sodium 138 mmol/L (136-145)
== END 2020-06-17 22:17 | disposition home or self-care (01) ==
LOC: ERS 15:51
DX: J45.901 Unspecified asthma with (acute) exacerbation (principal); E11.9 Type 2 diabetes mellitus without complications; I11.0 Hypertensive heart disease with heart failure; I25.2 Old myocardial infarction; I50.9 Heart failure, unspecified; Z87.891 Personal history of nicotine dependence; Z79.84 Long term (current) use of oral hypoglycemic drugs; Z79.51 Long term (current) use of inhaled steroids; Z79.899 Other long term (current) drug therapy
CPT/HCPCS: 36415; 71045; 80053; 84484; 85025; 93005; 94640; J7620

== ENCOUNTER 2020-06-26 11:05 | Outpatient (CLI) | payer MEDICARE, MEDICAID ==
--- NOTE | 2020-06-26 13:28 | PET ---
Radionucleotide PET scan with CT attenuation correction HISTORY: Right lung mass. FINDINGS: The right hilar mass detailed on recent CT chest is inseparable on PET scan from the adjace nt right hilar adenopathy. Max SUV 9.4. Hypermetabolic lymph nodes are also present at the left hilum max SUV 9.6. Right paratracheal lymph node activity max SUV 8.9. Left paratracheal lymph node activity max SUV 10. 2. Bulky subcarinal lymph nodes show max SUV 14.2. A nonenlarged right supraclavicular lymph node shows max SUV 2.9. No pathologic activity within the abdomen. The nondiagnostic CT attenuation correction images show the liver to be hypodense. Retroaortic left r enal vein is incidentally noted. Diverticula arise from the colon without adjacent inflammation. IMPRESSION : Bilateral mediastinal and right supraclavicular hypermetabolic adenopathy. Hepato-steatosis. Diverticulosis. No evidence of diverticulitis.
== END 2020-06-26 11:06 | disposition home or self-care (01) ==
LOC: PET 11:05
PROVIDERS: ATTEND Hospitalist
DX: R91.8 Other nonspecific abnormal finding of lung field (principal); D49.1 Neoplasm of unspecified behavior of respiratory system; R59.0 Localized enlarged lymph nodes; K76.0 Fatty (change of) liver, not elsewhere classified; K57.30 Diverticulosis of large intestine without perforation or abscess without bleeding
CPT/HCPCS: 78815; A9552

== ENCOUNTER 2020-12-18 09:59 | Outpatient (CLI) | payer MEDICARE, MEDICAID | END 2020-12-18 10:00 | disposition home or self-care (01) | LOC: BICRAD 09:59 | PROVIDERS: ATTEND Internal Medicine Pulmonary Disease | DX: R06.00 Dyspnea, unspecified (principal) | CPT/HCPCS: 71046 ==

== ENCOUNTER 2021-03-03 11:48 | Emergency (ER) | payer MEDICARE, MEDICAID ==
[2021-03-03] MEDS ORDERED: Acetaminophen 325 MG TAB ONE (13:38)
[2021-03-03 17:37] LABS: SARS-CoV-2 PCR by NAA Not Detected (NotDetected)
== END 2021-03-03 14:38 | disposition home or self-care (01) ==
LOC: ERS 11:48
DX: J02.9 Acute pharyngitis, unspecified (principal); Z20.822 Contact with and (suspected) exposure to COVID-19; I11.0 Hypertensive heart disease with heart failure; I50.9 Heart failure, unspecified; I25.2 Old myocardial infarction; R73.03 Prediabetes; Z87.891 Personal history of nicotine dependence; Z79.52 Long term (current) use of systemic steroids; Z79.899 Other long term (current) drug therapy
CPT/HCPCS: 87081; 87430; 99283; U0003; U0005

== ENCOUNTER 2021-04-30 03:36 | Emergency (ER) | payer MEDICARE, MEDICAID ==
[2021-04-30 04:12] LABS: #Basophils 0.1 thou/uL (0.0-0.2); #Eosinphils 0.2 thou/uL (0.0-0.7); #Lymphocytes 2.4 thou/uL (1.20-3.40); #Monocytes 0.5 thou/uL (0.11-0.59); #Neutrophils 2.9 thou/uL (1.40-6.50); %Basophils 1.4 % (0.0-1.0); %Eosinophils 3.5 % (0.0-10.0); %Lymphocytes 39.2 % (21.0-51.0); %Neutrophils 47.8 % (42.0-75.0); Hemoglobin 14.8 g/dL (14.0-18.0); Mean Corpuscular HGB CONC 34.1 g/dL (32.0-36.0); Mean Corpuscular Volume 85.2 fL (78.0-98.0); Mean Platelet Volume 7.5 fL (7.4-10.4); Platelet Count 226 thou/uL (130-400); RBC Distribution Width 14.1 % (11.5-14.5); Red Blood Cell (RBC) Count 5.11 mill/uL (4.70-6.10); White Blood Cell (WBC) Count 6.1 thou/uL (4.8-10.8)
[2021-04-30] MEDS ORDERED: Ketorolac Tromethamine 30 MG/ML VIAL ONE (04:18)
[2021-04-30 04:32] LABS: ALT (SGPT) 98 U/L (8-55); AST (SGOT) 67 U/L (5-34); Albumin 3.9 g/dL (3.5-5.0); Alkaline Phosphatase 111 U/L (40-110); Anion Gap 12 mmol/L (10-20); BUN (Urea Nitrogen) 8 mg/dL (8.9-20.6); Bilirubin, Total 0.4 mg/dL (0.2-1.2); Calc. Creatinine Clearance 0 mL/min (70-130); Calcium 9.3 mg/dL (7.8-10.44); Carbon Dioxide 27 mmol/L (22-29); Chloride 103 mmol/L (98-107); Globulin 3.6 g/dL (2.4-3.5); Glucose 192 mg/dL (70-105); Potassium 3.9 mmol/L (3.5-5.1); Protein, Total 7.5 g/dL (6.0-8.3); Sodium 138 mmol/L (136-145)
[2021-04-30] MEDS ORDERED: diphenhydrAMINE 12.5 MG/5 ML UDCUP ONE (04:58)
[2021-04-30] MEDS ORDERED: Metoclopramide HCl 10 MG/2 ML VIAL ONE (04:58)
[2021-04-30] MEDS ORDERED: diphenhydrAMINE 50 MG/ML VIAL ONE (05:04)
[2021-04-30 12:35] LABS: SARS-CoV-2 PCR by NAA DETECTED (NotDetected)
== END 2021-04-30 06:40 | disposition home or self-care (01) ==
LOC: ERS 03:36
DX: U07.1 COVID-19 (principal); I11.0 Hypertensive heart disease with heart failure; I50.9 Heart failure, unspecified; I25.2 Old myocardial infarction; Z87.891 Personal history of nicotine dependence
CPT/HCPCS: 71045; 80053; 84484; 85025; 93005; 96365; 96375; 99284; U0003; U0005; J1200; J1885; J2765; Q0163

== ENCOUNTER 2021-09-09 06:21 | Emergency (ER) | payer MEDICARE, MEDICAID ==
[2021-09-09] MEDS ORDERED: Ketorolac Tromethamine 30 MG/ML VIAL ONE (06:39)
== END 2021-09-09 08:08 | disposition home or self-care (01) ==
LOC: ERS 06:21
DX: S39.012A Strain of muscle, fascia and tendon of lower back, initial encounter (principal); I25.2 Old myocardial infarction; I11.0 Hypertensive heart disease with heart failure; I50.9 Heart failure, unspecified; Z87.891 Personal history of nicotine dependence; Y09 Assault by unspecified means
CPT/HCPCS: 70450; 70486; 72100; 72125; 96372; J1885

== ENCOUNTER 2021-09-20 15:24 | Emergency (ER) | payer OTHER, MEDICAID ==
[2021-09-20 16:21] LABS: #Basophils 0.1 thou/uL (0.0-0.2); #Eosinphils 0.2 thou/uL (0.0-0.7); #Lymphocytes 2.6 thou/uL (1.20-3.40); #Monocytes 0.7 thou/uL (0.11-0.59); #Neutrophils 6.5 thou/uL (1.40-6.50); %Basophils 0.8 % (0.0-1.0); %Eosinophils 1.5 % (0.0-10.0); %Lymphocytes 25.7 % (21.0-51.0); %Monocytes 7.1 % (0.0-10.0); %Neutrophils 64.8 % (42.0-75.0); Hemoglobin 14.3 g/dL (14.0-18.0); Mean Corpuscular HGB CONC 30.8 g/dL (32.0-36.0); Mean Corpuscular Hemoglobin 27.9 pg (27.0-31.0); Mean Corpuscular Volume 90.6 fL (78.0-98.0); Mean Platelet Volume 7.6 fL (7.4-10.4); Platelet Count 260 thou/uL (130-400); RBC Distribution Width 13.6 % (11.5-14.5); Red Blood Cell (RBC) Count 5.13 mill/uL (4.70-6.10)
[2021-09-20] MEDS ORDERED: Ondansetron PF 4 MG/2 ML Vial ONE (16:32)
[2021-09-20 16:46] LABS: ALT (SGPT) 92 U/L (8-55); AST (SGOT) 106 U/L (5-34); Albumin 3.6 g/dL (3.5-5.0); Alkaline Phosphatase 121 U/L (40-110); Anion Gap 14 mmol/L (10-20); BUN (Urea Nitrogen) 8 mg/dL (8.9-20.6); Bilirubin, Total 0.4 mg/dL (0.2-1.2); CK (CPK) 455 U/L (30-200); Calc. Creatinine Clearance 0 mL/min (70-130); Calcium 8.4 mg/dL (7.8-10.44); Carbon Dioxide 21 mmol/L (22-29); Chloride 104 mmol/L (98-107); Globulin 2.5 g/dL (2.4-3.5); Glucose 272 mg/dL (70-105); Lipase 38 U/L (8-78); Potassium 4.2 mmol/L (3.5-5.1); Protein, Total 6.1 g/dL (6.0-8.3); Sodium 135 mmol/L (136-145)
== END 2021-09-20 17:30 | disposition home or self-care (01) ==
LOC: ERS 15:24
DX: E86.0 Dehydration (principal); R11.2 Nausea with vomiting, unspecified; R19.7 Diarrhea, unspecified; I25.2 Old myocardial infarction; I11.0 Hypertensive heart disease with heart failure; I50.9 Heart failure, unspecified; Z87.891 Personal history of nicotine dependence; Z79.899 Other long term (current) drug therapy
CPT/HCPCS: 36415; 80053; 82550; 83690; 84484; 85025; 93005; 96361; 96374; J2405